=== PATIENT | male | born 1950 | race Caucasian/White ===

== ENCOUNTER 2021-02-05 11:49 | Emergency (ER) | payer MEDICARE ==
--- NOTE | 2021-02-05 11:59 | ERPHSYRPT ---
- History of Present Illness Time Seen by Provider: 02/05/21 11:58 Source: patient Exam Limitations: no limitations Physician History: This is a 71-year-old white male patient of the [facility] system who was diagnosed Covid positive viral infection on 01/31/2021 and presents with primary complaints of mild nausea, generalized abdominal pain that is mild and several episodes of diarrheal stools in the last couple of days. Patient is not on any new antibiotic treatment. Patient has received his Moderna vaccinations. This patient is diabetic and has a history of hypertension. Patient denies chest pain. He denies fever. He has no complaints of shortness of breath and arrives with room air oxygen saturation levels of greater than 95%. Patient lives [place]. Timing/Duration: day(s) (Last few days) Cough Quality/Degree: no cough Possible Cause: no prior episodes Modifying Factors: Improves With: nothing Associated Symptoms: No fever, No chills, No chest pain/soreness, No cough, No headache, No shortness of breath Allergies/Adverse Reactions: No Known Drug Allergies Allergy (Unverified 02/05/21 12:08) Travel Risk - International Travel Have you traveled outside of the country in past 3 weeks: No - Coronavirus Screening Are you exhibiting any of the following symptoms?: Yes Symptoms: Vomiting/Diarrhea - Vaccine Status Have you recieved a Covid-19 vaccination: Yes [employer]: Moderna - Review of Systems Constitutional: No Symptoms Eyes: No Symptoms Ears, Nose, & Throat: No Symptoms Respiratory: No Symptoms Abdominal/Gastrointestinal: Abdominal Pain, Nausea, Diarrhea, No Vomiting Genitourinary Symptoms: No No Symptoms Musculoskeletal: No Symptoms Skin: No Symptoms Neurological: No Symptoms Psychological: No Symptoms Endocrine: No Symptoms Hematologic/Lymphatic: No Symptoms Immunological/Allergic: No Symptoms All Other Systems: Reviewed and Negative - Past Medical History Pertinent Past Medical History: Yes - Past Surgical History Past Surgical History: Yes - Nursing Vital Signs Nursing Vital Signs: Initial Vital Signs Temperature 97.6 F 02/05/21 12:01 Pulse Rate 72 02/05/21 12:01 Respiratory Rate 18 02/05/21 12:01 Blood Pressure 142/70 02/05/21 12:01 O2 Sat by Pulse Oximetry 97 02/05/21 12:01 Pain Scale Pain Intensity 4 - Physical Exam General Appearance: no apparent distress, alert, anxiety Eye Exam: PERRL/EOMI, eyes nml inspection Ears, Nose, Throat Exam: normal ENT inspection, moist mucous membranes Neck Exam: normal inspection, non-tender, supple, full range of motion Respiratory Exam: normal breath sounds, lungs clear, airway intact, No chest tenderness, No respiratory distress Cardiovascular Exam: regular rate/rhythm, normal heart sounds, normal peripheral pulses Gastrointestinal/Abdomen Exam: soft, normal bowel sounds, No tenderness Rectal Exam: not done Back Exam: normal inspection, normal range of motion, No CVA tenderness, No vertebral tenderness Extremity Exam: normal inspection Neurologic Exam: alert, oriented x 3, cooperative, catcher plug II-XII nml as tested, normal mood/affect, nml cerebellar function, nml station & gait, sensation nml Skin Exam: normal color, warm, dry Lymphatic Exam: No adenopathy SpO2 Interpretation: normal O2 Delivery: Room Air - Course Nursing assessment & vital signs reviewed: Yes Ordered Tests: Active Orders 24 hr Category Date Time Status EKG-ER Only STAT Care 02/05/21 12:17 Active IV Insertion STAT Care 02/05/21 12:17 Active Isolation, Initiate & Maintain STAT Care 02/05/21 12:17 Active AMYLASE Stat Lab 02/05/21 12:30 Completed CBC W DIFF Stat Lab 02/05/21 12:30 Completed CMP Stat Lab 02/05/21 12:30 Completed Ferritin Stat Lab 02/05/21 12:30 Completed INFLUENZA A+B ABRAHAN Stat Lab 02/05/21 12:35 Completed LDH-LACTATE DEHYDROGENASE Stat Lab 02/05/21 12:30 Completed LIPASE Stat Lab 02/05/21 12:30 Completed Lactic Acid Stat Lab 02/05/21 12:17 Ordered [place] Screen Stat Lab 02/05/21 12:30 Completed TROPONIN Q3H Lab 02/05/21 12:30 Completed TROPONIN Q3H Lab 02/05/21 15:30 Ordered TROPONIN Q3H Lab 02/05/21 18:30 Ordered TROPONIN Q3H Lab 02/05/21 21:30 Ordered TROPONIN Q3H Lab 02/06/21 00:30 Ordered UA W/RFX UR CULTURE Stat Lab 02/05/21 14:15 Completed Medication Summary Discontinued Medications Generic Name Dose Route Start Last Admin Trade Name Freq PRN Reason Stop Dose Admin Sodium Chloride 1,000 mls @ 999 mls/hr 02/05/21 12:17 02/05/21 13:48 Sodium Chloride 0.9% 1000 Ml IV 02/05/21 13:17 Infused .Q1H1M STA Infusion Sodium Chloride 1,000 mls @ 999 mls/hr 02/05/21 13:32 02/05/21 14:53 Sodium Chloride 0.9% 1000 Ml IV 02/05/21 14:32 Infused .Q1H1M STA Infusion Sodium Chloride Confirm 02/05/21 13:41 Sodium Chloride 0.9% 1000 Ml Administered 02/05/21 13:42 Dose 1,000 mls @ ud .ROUTE .STK-MED ONE Ondansetron HCl 4 mg 02/05/21 12:17 02/05/21 12:26 Zofran 4 Mg/2 Ml Vial IV 02/05/21 12:18 4 mg STAT ONE Administration Ondansetron HCl Confirm 02/05/21 12:24 Zofran 4 Mg/2 Ml Vial Administered 02/05/21 12:25 Dose 4 mg .ROUTE .STK-MED ONE Lab/Rad Data: Laboratory Result Diagrams 02/05/21 12:30 02/05/21 12:30 Laboratory Results 02/05/21 02/05/21 02/05/21 Range/Units 14:15 12:35 12:30 WBC (4.0-10.5) K/mm3 RBC (4.1-5.6) M/mm3 Hgb (12.5-18.0) gm/dl Hct (42-50) % MCV (78-100) fl MCH (26-32) pg MCHC (32-36) g/dl RDW (11.5-14.0) % Plt Count (150-450) K/mm3 MPV (7.5-11.0) fl Gran % (36.0-66.0) % Eos # (Auto) (0-0.5) Absolute Lymphs (auto) (1.0-4.6) Absolute Monos (auto) (0.0-1.3) Lymphocytes % (24.0-44.0) % Monocytes % (0.0-12.0) % Eosinophils % (0.00-5.0) % Basophils % (0.0-0.4) % Absolute Granulocytes (1.4-6.9) Basophils # (0-0.4) Sodium (137-145) mmol/L Potassium (3.5-5.1) mmol/L Chloride (98-107) mmol/L Carbon Dioxide (22-30) mmol/L Anion Gap (5-15) MEQ/L BUN (9-20) mg/dL Creatinine (0.66-1.25) mg/dL Estimated GFR ML/MIN Glucose (74-106) mg/dL Calcium (8.4-10.2) mg/dL Ferritin (17.9-464) ng/mL Total Bilirubin (0.2-1.3) mg/dL AST (17-59) U/L ALT (0-50) U/L Alkaline Phosphatase (38-126) U/L Lactate Dehydrogenase (120-246) U/L Troponin I (0.000-0.034) ng/mL Serum Total Protein (6.3-8.2) g/dL Albumin (3.5-5.0) g/dL Amylase (30-110) U/L Lipase (23-300) U/L Urine Color YELLOW (YELLOW) Urine Appearance CLEAR (CLEAR) Urine pH 6.0 (5-6) Ur Specific [place] 1.013 (1.005-1.025) Urine Protein NEGATIVE (Negative) Urine Ketones NEGATIVE (NEGATIVE) Urine Blood NEGATIVE (0-5) Shayne/ul Urine Nitrite NEGATIVE (NEGATIVE) Urine Bilirubin NEGATIVE (NEGATIVE) Urine Urobilinogen 2 (0-1) mg/dL Ur Leukocyte Esterase NEGATIVE (NEGATIVE) Urine WBC (Auto) NONE (0-5) /HPF Urine RBC (Auto) NONE (0-2) /HPF U Epithel Cells (Auto) NONE (FEW) /HPF Urine Bacteria (Auto) NONE (NEGATIVE) /HPF Urine Culture Reflexed NO (NO) Urine Glucose NEGATIVE (NEGATIVE) mg/dL Monoscreen NEGATIVE (Negative) Influenza Type A Ag NEGATIVE (NEGATIVE) Influenza Type B Ag NEGATIVE (NEGATIVE) Slides for Path Review 02/05/21 02/05/21 02/05/21 Range/Units 12:30 12:30 12:30 WBC (4.0-10.5) K/mm3 RBC (4.1-5.6) M/mm3 Hgb (12.5-18.0) gm/dl Hct (42-50) % MCV (78-100) fl MCH (26-32) pg MCHC (32-36) g/dl RDW (11.5-14.0) % Plt Count (150-450) K/mm3 MPV (7.5-11.0) fl Gran % (36.0-66.0) % Eos # (Auto) (0-0.5) Absolute Lymphs (auto) (1.0-4.6) Absolute Monos (auto) (0.0-1.3) Lymphocytes % (24.0-44.0) % Monocytes % (0.0-12.0) % Eosinophils % (0.00-5.0) % Basophils % (0.0-0.4) % Absolute Granulocytes (1.4-6.9) Basophils # (0-0.4) Sodium 131 L (137-145) mmol/L Potassium 3.5 (3.5-5.1) mmol/L Chloride 95 L (98-107) mmol/L Carbon Dioxide 22 (22-30) mmol/L Anion Gap 17.8 H (5-15) MEQ/L BUN 22 H (9-20) mg/dL Creatinine 1.04 (0.66-1.25) mg/dL Estimated GFR > 60.0 ML/MIN Glucose 75 (74-106) mg/dL Calcium 9.4 (8.4-10.2) mg/dL Ferritin 146 (17.9-464) ng/mL Total Bilirubin 1.50 H (0.2-1.3) mg/dL AST 208 H (17-59) U/L ALT 78 H (0-50) U/L Alkaline Phosphatase 143 H (38-126) U/L Lactate Dehydrogenase 240 (120-246) U/L Troponin I < 0.012 (0.000-0.034) ng/mL Serum Total Protein 7.6 (6.3-8.2) g/dL Albumin 3.6 (3.5-5.0) g/dL Amylase 79 (30-110) U/L Lipase 381 H (23-300) U/L Urine Color (YELLOW) Urine Appearance (CLEAR) Urine pH (5-6) Ur Specific [place] (1.005-1.025) Urine Protein (Negative) Urine Ketones (NEGATIVE) Urine Blood (0-5) Shayne/ul Urine Nitrite (NEGATIVE) Urine Bilirubin (NEGATIVE) Urine Urobilinogen (0-1) mg/dL Ur Leukocyte Esterase (NEGATIVE) Urine WBC (Auto) (0-5) /HPF Urine RBC (Auto) (0-2) /HPF U Epithel Cells (Auto) (FEW) /HPF Urine Bacteria (Auto) (NEGATIVE) /HPF Urine Culture Reflexed (NO) Urine Glucose (NEGATIVE) mg/dL Monoscreen (Negative) Influenza Type A Ag (NEGATIVE) Influenza Type B Ag (NEGATIVE) Slides for Path Review 02/05/21 Range/Units 12:30 WBC 4.4 (4.0-10.5) K/mm3 RBC 3.65 L (4.1-5.6) M/mm3 Hgb 11.7 L (12.5-18.0) gm/dl Hct 34.9 L (42-50) % MCV 95.6 (78-100) fl MCH 32.1 H (26-32) pg MCHC 33.5 (32-36) g/dl RDW 15.5 H (11.5-14.0) % Plt Count 94 L (150-450) K/mm3 MPV 10.9 (7.5-11.0) fl Gran % 67.1 H (36.0-66.0) % Eos # (Auto) 0.02 (0-0.5) Absolute Lymphs (auto) 0.81 L (1.0-4.6) Absolute Monos (auto) 0.58 (0.0-1.3) Lymphocytes % 18.6 L (24.0-44.0) % Monocytes % 13.3 H (0.0-12.0) % Eosinophils % 0.5 (0.00-5.0) % Basophils % 0.5 (0.0-0.4) % Absolute Granulocytes 2.93 (1.4-6.9) Basophils # 0.02 (0-0.4) Sodium (137-145) mmol/L Potassium (3.5-5.1) mmol/L Chloride (98-107) mmol/L Carbon Dioxide (22-30) mmol/L Anion Gap (5-15) MEQ/L BUN (9-20) mg/dL Creatinine (0.66-1.25) mg/dL Estimated GFR ML/MIN Glucose (74-106) mg/dL Calcium (8.4-10.2) mg/dL Ferritin (17.9-464) ng/mL Total Bilirubin (0.2-1.3) mg/dL AST (17-59) U/L ALT (0-50) U/L Alkaline Phosphatase (38-126) U/L Lactate Dehydrogenase (120-246) U/L Troponin I (0.000-0.034) ng/mL Serum Total Protein (6.3-8.2) g/dL Albumin (3.5-5.0) g/dL Amylase (30-110) U/L Lipase (23-300) U/L Urine Color (YELLOW) Urine Appearance (CLEAR) Urine pH (5-6) Ur Specific [place] (1.005-1.025) Urine Protein (Negative) Urine Ketones (NEGATIVE) Urine Blood (0-5) Shayne/ul Urine Nitrite (NEGATIVE) Urine Bilirubin (NEGATIVE) Urine Urobilinogen (0-1) mg/dL Ur Leukocyte Esterase (NEGATIVE) Urine WBC (Auto) (0-5) /HPF Urine RBC (Auto) (0-2) /HPF U Epithel Cells (Auto) (FEW) /HPF Urine Bacteria (Auto) (NEGATIVE) /HPF Urine Culture Reflexed (NO) Urine Glucose (NEGATIVE) mg/dL Monoscreen (Negative) Influenza Type A Ag (NEGATIVE) Influenza Type B Ag (NEGATIVE) Slides for Path Review YES - Progress Progress: improved Air Movement: good Progress Note: 02/05/21 15:24 Medical decision making: This patient has known COVID-19 viral infection. He has no chest pain. He is not short of breath. He is oxygenating well on room air. After IV hydration he states his symptoms have improved. Patient will be discharged to home with instructions to continue clear liquid diet and advance slowly. He is to avoid fatty greasy spicy foods. We will send a prescription for Zofran to his pharmacy. Blood Culture(s) Obtained: Yes Antibiotics given: No Counseled pt/family regarding: lab results, diagnosis, need for follow-up - Departure Departure Disposition: Home Clinical Impression: Viral illness, COVID-19 virus infection Condition: Stable Critical Care Time: No Additional Instructions: Drink plenty of clear liquids. Take your medication as prescribed. Return to the emergency department if symptoms worsen. Continue quarantine yourself until the timeframe has passed for quarantine. Avoid fatty greasy spicy foods. Prescriptions: Ondansetron ODT 4 MG [Zofran Odt 4 mg] 4 mg PO Q6H PRN PRN #10 tablet PRN Reason: Vomiting
[2021-02-05] MEDS ORDERED: Zofran 4 MG/2 ML VIAL IV ONE (12:17)
[2021-02-05] MEDS ORDERED: Sodium Chloride 0.9% 1000 ML 1,000 ML IV STA ×2 (12:17→13:32)
[2021-02-05] MEDS ORDERED: Zofran 4 MG/2 ML VIAL ONE (12:24)
[2021-02-05 12:40] LABS: Absolute Neutrophil Ct (ANC) 2.93 (1.4-6.9); BASOPHIL % 0.5 % (0.0-0.4); Basophil (Absolute #) 0.02 (0-0.4); Eosinophil % 0.5 % (0.00-5.0); Eosinophil (Absolute #) 0.02 (0-0.5); Hematocrit 34.9 % (42-50); Hemoglobin 11.7 gm/dl (12.5-18.0); Lymphocyte (Absolute #) 0.81 (1.0-4.6); Lymphocytes % 18.6 % (24.0-44.0); Mean Cell Volume 95.6 fl (78-100); Mean Corpuscular Hemoglobin 32.1 pg (26-32); Mean Corpuscular Hgb Concent. 33.5 g/dl (32-36); Mean Platelet Volume 10.9 fl (7.5-11.0); Monocyte (Absolute #) 0.58 (0.0-1.3); Monocytes % 13.3 % (0.0-12.0); Neutrophil % 67.1 % (36.0-66.0); Platelet Count 94 K/mm3 (150-450); Red Blood Count 3.65 M/mm3 (4.1-5.6); Red Cell Distribution Width 15.5 % (11.5-14.0); White Blood Count 4.4 K/mm3 (4.0-10.5)
[2021-02-05 13:02] LABS: INFLUENZA A NEGATIVE (NEGATIVE); INFLUENZA B NEGATIVE (NEGATIVE)
[2021-02-05 13:06] LABS: ALBUMIN 3.6 g/dL (3.5-5.0); ALKALINE PHOSPHATASE 143 U/L (38-126); AMYLASE 79 U/L (30-110); ANION GAP 17.8 MEQ/L (5-15); BLOOD UREA NITROGEN 22 mg/dL (9-20); CHLORIDE 95 mmol/L (98-107); Calcium 9.4 mg/dL (8.4-10.2); Carbon Dioxide 22 mmol/L (22-30); Creatinine 1 1.04 mg/dL (0.66-1.25); EST GLOMERULAR FILTRATION RATE > 60.0 ML/MIN; Glucose 75 mg/dL (74-106); LDH-LACTATE DEHYDROGENASE 240 U/L (120-246); LIPASE 381 U/L (23-300); Potassium 3.5 mmol/L (3.5-5.1); SGOT/AST 208 U/L (17-59); SGPT/ALT 78 U/L (0-50); SODIUM 131 mmol/L (137-145); Total Protein 7.6 g/dL (6.3-8.2)
[2021-02-05] MEDS ORDERED: Sodium Chloride 0.9% 1000 ML 1,000 ML ONE (13:41)
[2021-02-05 14:29] LABS: Slide Review 1 YES
[2021-02-05 14:59] LABS: Appearance CLEAR (CLEAR); Bilirubin NEGATIVE (NEGATIVE); Blood NEGATIVE Ery/ul (0-5); Glucose NEGATIVE (NEGATIVE); Ketones NEGATIVE (NEGATIVE); Leukocyte Esterase NEGATIVE (NEGATIVE); Nitrite NEGATIVE (NEGATIVE); Protein,Urine Dip NEGATIVE (Negative); Specific Gravity 1.013 (1.005-1.025); Urobilinogen 2 mg/dL (0-1)
[2021-02-05 15:19] VITALS: BP 126/72; PULSE 62; O2SAT 96
== END 2021-02-05 15:54 | disposition home or self-care (01) ==
LOC: ED 11:49
DX: U07.1 COVID-19 (principal); R10.9 Unspecified abdominal pain; R11.0 Nausea; R19.7 Diarrhea, unspecified; E11.9 Type 2 diabetes mellitus without complications; I10 Essential (primary) hypertension; Z20.822 Contact with and (suspected) exposure to COVID-19
CPT/HCPCS: 36000; 36415; 80053; 81001; 82150; 82728; 83615; 83690; 84484; 85025; 86308; 87400; 93005; 96360; 96374; 99284; J2405

== ENCOUNTER 2021-06-25 09:28 | Emergency (ER) | payer MEDICARE, OTHER ==
[2021-06-25] MEDS ORDERED: DUONEB 0.5-3 MG/3 ml Neb IH ONE ×2 (09:59→10:12)
--- NOTE | 2021-06-25 10:05 | ERPHSYRPT ---
- History of Present Illness Time Seen by Provider: 06/25/21 09:37 Source: patient Exam Limitations: no limitations Physician History: 71-year-old male with remote history of tobacco abuse, hypertension, hyperlipidemia, diabetes mellitus presented in the ER with 2 days of progressively increasing shortness of breath and cough minimal productive of clear sputum with associated increased abdominal distention and lower extremity swellings. Patient denies any history of CAD or CHF. Denies any chest pain but complains of difficulty breathing especially with lying down. Subjective feeling of fever chills since yesterday and is vaccinated for COVID-19. Timing/Duration: day(s) (2), constant, gradual onset, worse Activities at Onset: activity, rest Severity of Dyspnea-Max: moderate Severity of Dyspnea-Current: moderate Possible Cause: no prior episodes Associated Symptoms: anxiety, cough, edema, fever, loss of appetite, chills, heaviness, leg swelling, tightness, No painful breathing Allergies/Adverse Reactions: No Known Drug Allergies Allergy (Verified 06/25/21 10:12) Home Medications: Unobtainable 06/25/21 [History] Hx Influenza Vaccination/Date Given: No Hx Pneumococcal Vaccination/Date Given: No Travel Risk - Vaccine Status Have you recieved a Covid-19 vaccination: Yes Tobacco Sweeper: Moderna - Vaccination Dates Date of 2cond Vaccination (if applicable): ? - Review of Systems Constitutional: Fever, Chills, Fatigue, Weakness Eyes: No Symptoms Ears, Nose, & Throat: No Symptoms Respiratory: Cough, Dyspnea Cardiac: Edema Abdominal/Gastrointestinal: Abdominal Pain, No Nausea, No Vomiting Genitourinary Symptoms: No Symptoms Musculoskeletal: No Symptoms Skin: No Symptoms Neurological: No Symptoms Endocrine: No Symptoms Hematologic/Lymphatic: No Symptoms Immunological/Allergic: No Symptoms - Past Medical History Pertinent Past Medical History: Yes Cardiac History: Hypertension Endocrine Medical History: Diabetes Type II - Past Surgical History Past Surgical History: Yes - Social History Smoking Status: Never smoker Exposure to second hand smoke: No Drug Use: none Patient Lives Alone: Yes (states has help is needed) - Nursing Vital Signs Nursing Vital Signs: Initial Vital Signs Temperature 97.2 F 06/25/21 09:53 Pulse Rate 105 H 06/25/21 09:53 Respiratory Rate 20 06/25/21 09:53 Blood Pressure 125/86 06/25/21 09:53 O2 Sat by Pulse Oximetry 99 06/25/21 09:53 Pain Scale Pain Intensity 4 - Physical Exam General Appearance: no apparent distress, alert Eye Exam: PERRL/EOMI, eyes nml inspection Ears, Nose, Throat Exam: hearing grossly normal, normal ENT inspection, normal pharynx Neck Exam: normal inspection, non-tender, supple, full range of motion Respiratory Exam: normal breath sounds, lungs clear Cardiovascular/Chest Exam: normal heart sounds, regular rate/rhythm Abdominal/Gastrointestinal Exam: normal bowel sounds, distention, No tenderness, No guarding Extremity Exam: non-tender, normal range of motion, normal inspection, pedal edema, swelling, No jamin's sign, No joint swelling Neurologic Exam: alert, oriented x 3, cooperative, certified personal finance counselor II-XII nml as tested Skin Exam: normal color SpO2 Interpretation: normal SpO2: 99 O2 Delivery: Room Air - Course EKG Interpreted by Me: RATE ([id number]), Sinus Tach, NORMAL AXIS, NORMAL INTERVALS, Non-specific ST Changes Ordered Tests: Active Orders 24 hr Category Date Time Status Logging Worker STAT Care 06/25/21 09:59 Active EKG-ER Only STAT Care 06/25/21 09:59 Active IV Insertion STAT Care 06/25/21 09:59 Active ABDOMEN AND PELVIS W/0 CONTRAS [CT] Stat Exams 06/25/21 11:03 Completed CHEST 1 VIEW (PORTABLE) Stat Exams 06/25/21 09:59 Completed BLOOD CULTURE Stat Lab 06/25/21 10:15 Received CBC W DIFF Stat Lab 06/25/21 10:00 Completed CMP Stat Lab 06/25/21 10:00 Completed COVID AG-BINAX NOW RAPID TEST Stat Lab 06/25/21 14:36 Completed Hemoglobin Stat Lab 06/25/21 14:36 Completed LIPASE Stat Lab 06/25/21 10:00 Completed Lactic Acid Stat Lab 06/25/21 10:18 Completed Lactic Acid Stat Lab 06/25/21 12:23 Completed Lactic Acid Stat Lab 06/25/21 14:42 Completed MAGNESIUM Stat Lab 06/25/21 10:00 Completed NT PRO BNP Stat Lab 06/25/21 10:00 Completed PROTIME WITH INR Stat Lab 06/25/21 10:00 Completed PTT Stat Lab 06/25/21 10:00 Completed TROPONIN Q3H Lab 06/25/21 10:00 Completed TROPONIN Q3H Lab 06/25/21 12:35 Completed TROPONIN Q3H Lab 06/25/21 16:00 Ordered TROPONIN Q3H Lab 06/25/21 19:00 Ordered TROPONIN Q3H Lab 06/25/21 22:00 Ordered UA W/RFX UR CULTURE Stat Lab 06/25/21 14:15 Completed Respiratory Therapy Assessment DAILY RT 06/25/21 10:15 Active Medication Summary Generic Name Dose Route Start Last Admin Trade Name Freq PRN Reason Stop Dose Admin Sodium Chloride 1,000 mls @ 125 mls/hr 06/25/21 11:00 06/25/21 12:03 Sodium Chloride 0.9% 1000 Ml IV 07/25/21 10:59 125 mls/hr .Q8H SIXTO Administration Pantoprazole Sodium 80 mg/ 500 mls @ 50 mls/hr 06/25/21 11:15 Sodium Chloride IV 07/25/21 11:14 .Q10H SIXTO Magnesium Sulfate/Dextrose 100 mls @ 100 mls/hr 06/25/21 11:15 06/25/21 12:04 Magnesium 1 Gm / 100 Ml D5w IV 06/25/21 13:14 100 mls/hr Q1H SIXTO Administration Discontinued Medications Generic Name Dose Route Start Last Admin Trade Name Freq PRN Reason Stop Dose Admin Albuterol/Ipratropium 3 ml 06/25/21 09:59 06/25/21 10:24 Ipratropium/Albuterol Sulfate 3 Ml Ampul.Neb IH 06/25/21 10:00 3 ml STAT ONE Administration Albuterol/Ipratropium Confirm 06/25/21 10:12 Ipratropium/Albuterol Sulfate 3 Ml Ampul.Neb Administered 06/25/21 10:13 Dose 3 ml IH .STK-MED ONE Piperacillin Sod/Tazobactam 100 mls @ 200 mls/hr 06/25/21 11:05 06/25/21 11:59 Sod 3.375 gm/ Sodium Chloride IV 06/25/21 11:34 200 mls/hr STAT ONE Administration Sodium Chloride Confirm 06/25/21 11:53 Sodium Chloride 100ml Mini-Bag Plus Administered 06/25/21 11:54 Dose 100 mls @ ud IV .STK-MED ONE Pantoprazole Sodium 40 mg 06/25/21 10:51 06/25/21 11:56 Pantoprazole 40 Mg Vial IV 06/25/21 10:52 40 mg STAT ONE Administration Pantoprazole Sodium Confirm 06/25/21 11:50 Pantoprazole 40 Mg Vial Administered 06/25/21 11:51 Dose 40 mg IV .STK-MED ONE Pantoprazole Sodium Confirm 06/25/21 12:01 Pantoprazole 40 Mg Vial Administered 06/25/21 12:02 Dose 40 mg IV .STK-MED ONE Piperacillin Sod/Tazobactam Sod Confirm 06/25/21 11:50 Piperacillin/Tazobactam Sodium 3.375 Gm Vial Administered 06/25/21 11:51 Dose 3.375 gm IV .STK-MED ONE Lab/Rad Data: Laboratory Result Diagrams 06/25/21 14:36 06/25/21 10:00 Laboratory Results 06/25/21 06/25/21 06/25/21 Range/Units 14:42 14:36 14:36 WBC (4.0-10.5) K/mm3 RBC (4.1-5.6) M/mm3 Hgb 6.5 L* (12.5-18.0) gm/dl Hct (42-50) % MCV (78-100) fl MCH (26-32) pg MCHC (32-36) g/dl RDW (11.5-14.0) % Plt Count (150-450) K/mm3 MPV (7.5-11.0) fl Gran % (36.0-66.0) % Eos # (Auto) (0-0.5) Absolute Lymphs (auto) (1.0-4.6) Absolute Monos (auto) (0.0-1.3) Lymphocytes % (24.0-44.0) % Monocytes % (0.0-12.0) % Eosinophils % (0.00-5.0) % Basophils % (0.0-0.4) % Absolute Granulocytes (1.4-6.9) Basophils # (0-0.4) PT (9.4-12.5) SECONDS INR (0.8-3.0) APTT (25.1-36.5) SECONDS Sodium (137-145) mmol/L Potassium (3.5-5.1) mmol/L Chloride (98-107) mmol/L Carbon Dioxide (22-30) mmol/L Anion Gap (5-15) MEQ/L BUN (9-20) mg/dL Creatinine (0.66-1.25) mg/dL Estimated GFR ML/MIN Glucose (74-106) mg/dL Lactic Acid 7.2 H (0.4-2.0) Calcium (8.4-10.2) mg/dL Magnesium (1.6-2.3) mg/dL Total Bilirubin (0.2-1.3) mg/dL AST (17-59) U/L ALT (0-50) U/L Alkaline Phosphatase (38-126) U/L Troponin I (0.000-0.034) ng/mL NT-Pro-B Natriuret Pep (0-900) pg/mL Serum Total Protein (6.3-8.2) g/dL Albumin (3.5-5.0) g/dL Lipase (23-300) U/L Urine Color (YELLOW) Urine Appearance (CLEAR) Urine pH (5-6) Ur Specific [place] (1.005-1.025) Urine Protein (Negative) Urine Ketones (NEGATIVE) Urine Blood (0-5) Shayne/ul Urine Nitrite (NEGATIVE) Urine Bilirubin (NEGATIVE) Urine Urobilinogen (0-1) mg/dL Ur Leukocyte Esterase (NEGATIVE) Urine WBC (Auto) (0-5) /HPF U Hyaline Cast (Auto) (0-2) /LPF U Epithel Cells (Auto) (FEW) /HPF Urine Mucus (Auto) (NEGATIVE) /HPF Urine Culture Reflexed (NO) Urine Glucose (NEGATIVE) mg/dL SARS-CoV-2 Ag (Rapid) NEGATIVE (NEGATIVE) ABO Group Rh Factor Antibody Screen (NEGATIVE) Crossmatch (COMPATIBLE) 06/25/21 06/25/21 06/25/21 Range/Units 14:15 12:35 12:23 WBC (4.0-10.5) K/mm3 RBC (4.1-5.6) M/mm3 Hgb (12.5-18.0) gm/dl Hct (42-50) % MCV (78-100) fl MCH (26-32) pg MCHC (32-36) g/dl RDW (11.5-14.0) % Plt Count (150-450) K/mm3 MPV (7.5-11.0) fl Gran % (36.0-66.0) % Eos # (Auto) (0-0.5) Absolute Lymphs (auto) (1.0-4.6) Absolute Monos (auto) (0.0-1.3) Lymphocytes % (24.0-44.0) % Monocytes % (0.0-12.0) % Eosinophils % (0.00-5.0) % Basophils % (0.0-0.4) % Absolute Granulocytes (1.4-6.9) Basophils # (0-0.4) PT (9.4-12.5) SECONDS INR (0.8-3.0) APTT (25.1-36.5) SECONDS Sodium (137-145) mmol/L Potassium (3.5-5.1) mmol/L Chloride (98-107) mmol/L Carbon Dioxide (22-30) mmol/L Anion Gap (5-15) MEQ/L BUN (9-20) mg/dL Creatinine (0.66-1.25) mg/dL Estimated GFR ML/MIN Glucose (74-106) mg/dL Lactic Acid 8.0 H (0.4-2.0) Calcium (8.4-10.2) mg/dL Magnesium (1.6-2.3) mg/dL Total Bilirubin (0.2-1.3) mg/dL AST (17-59) U/L ALT (0-50) U/L Alkaline Phosphatase (38-126) U/L Troponin I < 0.012 (0.000-0.034) ng/mL NT-Pro-B Natriuret Pep (0-900) pg/mL Serum Total Protein (6.3-8.2) g/dL Albumin (3.5-5.0) g/dL Lipase (23-300) U/L Urine Color YELLOW (YELLOW) Urine Appearance CLEAR (CLEAR) Urine pH 5.0 (5-6) Ur Specific [place] 1.016 (1.005-1.025) Urine Protein NEGATIVE (Negative) Urine Ketones NEGATIVE (NEGATIVE) Urine Blood NEGATIVE (0-5) Shayne/ul Urine Nitrite NEGATIVE (NEGATIVE) Urine Bilirubin NEGATIVE (NEGATIVE) Urine Urobilinogen NEGATIVE (0-1) mg/dL Ur Leukocyte Esterase NEGATIVE (NEGATIVE) Urine WBC (Auto) 0-2 (0-5) /HPF U Hyaline Cast (Auto) 3-5 (0-2) /LPF U Epithel Cells (Auto) NONE (FEW) /HPF Urine Mucus (Auto) SLIGHT (NEGATIVE) /HPF Urine Culture Reflexed NO (NO) Urine Glucose NEGATIVE (NEGATIVE) mg/dL SARS-CoV-2 Ag (Rapid) (NEGATIVE) ABO Group Rh Factor Antibody Screen (NEGATIVE) Crossmatch (COMPATIBLE) 06/25/21 06/25/21 06/25/21 Range/Units 11:08 11:08 11:08 WBC (4.0-10.5) K/mm3 RBC (4.1-5.6) M/mm3 Hgb (12.5-18.0) gm/dl Hct (42-50) % MCV (78-100) fl MCH (26-32) pg MCHC (32-36) g/dl RDW (11.5-14.0) % Plt Count (150-450) K/mm3 MPV (7.5-11.0) fl Gran % (36.0-66.0) % Eos # (Auto) (0-0.5) Absolute Lymphs (auto) (1.0-4.6) Absolute Monos (auto) (0.0-1.3) Lymphocytes % (24.0-44.0) % Monocytes % (0.0-12.0) % Eosinophils % (0.00-5.0) % Basophils % (0.0-0.4) % Absolute Granulocytes (1.4-6.9) Basophils # (0-0.4) PT (9.4-12.5) SECONDS INR (0.8-3.0) APTT (25.1-36.5) SECONDS Sodium (137-145) mmol/L Potassium (3.5-5.1) mmol/L Chloride (98-107) mmol/L Carbon Dioxide (22-30) mmol/L Anion Gap (5-15) MEQ/L BUN (9-20) mg/dL Creatinine (0.66-1.25) mg/dL Estimated GFR ML/MIN Glucose (74-106) mg/dL Lactic Acid (0.4-2.0) Calcium (8.4-10.2) mg/dL Magnesium (1.6-2.3) mg/dL Total Bilirubin (0.2-1.3) mg/dL AST (17-59) U/L ALT (0-50) U/L Alkaline Phosphatase (38-126) U/L Troponin I (0.000-0.034) ng/mL NT-Pro-B Natriuret Pep (0-900) pg/mL Serum Total Protein (6.3-8.2) g/dL Albumin (3.5-5.0) g/dL Lipase (23-300) U/L Urine Color (YELLOW) Urine Appearance (CLEAR) Urine pH (5-6) Ur Specific [place] (1.005-1.025) Urine Protein (Negative) Urine Ketones (NEGATIVE) Urine Blood (0-5) Shayne/ul Urine Nitrite (NEGATIVE) Urine Bilirubin (NEGATIVE) Urine Urobilinogen (0-1) mg/dL Ur Leukocyte Esterase (NEGATIVE) Urine WBC (Auto) (0-5) /HPF U Hyaline Cast (Auto) (0-2) /LPF U Epithel Cells (Auto) (FEW) /HPF Urine Mucus (Auto) (NEGATIVE) /HPF Urine Culture Reflexed (NO) Urine Glucose (NEGATIVE) mg/dL SARS-CoV-2 Ag (Rapid) (NEGATIVE) ABO Group A Rh Factor POSITIVE Antibody Screen NEGATIVE (NEGATIVE) Crossmatch COMPATIBLE COMPATIBLE (COMPATIBLE) 06/25/21 06/25/21 06/25/21 Range/Units 10:18 10:00 10:00 WBC (4.0-10.5) K/mm3 RBC (4.1-5.6) M/mm3 Hgb (12.5-18.0) gm/dl Hct (42-50) % MCV (78-100) fl MCH (26-32) pg MCHC (32-36) g/dl RDW (11.5-14.0) % Plt Count (150-450) K/mm3 MPV (7.5-11.0) fl Gran % (36.0-66.0) % Eos # (Auto) (0-0.5) Absolute Lymphs (auto) (1.0-4.6) Absolute Monos (auto) (0.0-1.3) Lymphocytes % (24.0-44.0) % Monocytes % (0.0-12.0) % Eosinophils % (0.00-5.0) % Basophils % (0.0-0.4) % Absolute Granulocytes (1.4-6.9) Basophils # (0-0.4) PT 17.2 H (9.4-12.5) SECONDS INR 1.46 (0.8-3.0) APTT 34.3 (25.1-36.5) SECONDS Sodium (137-145) mmol/L Potassium (3.5-5.1) mmol/L Chloride (98-107) mmol/L Carbon Dioxide (22-30) mmol/L Anion Gap (5-15) MEQ/L BUN (9-20) mg/dL Creatinine (0.66-1.25) mg/dL Estimated GFR ML/MIN Glucose (74-106) mg/dL Lactic Acid 8.5 H (0.4-2.0) Calcium (8.4-10.2) mg/dL Magnesium (1.6-2.3) mg/dL Total Bilirubin (0.2-1.3) mg/dL AST (17-59) U/L ALT (0-50) U/L Alkaline Phosphatase (38-126) U/L Troponin I < 0.012 (0.000-0.034) ng/mL NT-Pro-B Natriuret Pep (0-900) pg/mL Serum Total Protein (6.3-8.2) g/dL Albumin (3.5-5.0) g/dL Lipase (23-300) U/L Urine Color (YELLOW) Urine Appearance (CLEAR) Urine pH (5-6) Ur Specific [place] (1.005-1.025) Urine Protein (Negative) Urine Ketones (NEGATIVE) Urine Blood (0-5) Shayne/ul Urine Nitrite (NEGATIVE) Urine Bilirubin (NEGATIVE) Urine Urobilinogen (0-1) mg/dL Ur Leukocyte Esterase (NEGATIVE) Urine WBC (Auto) (0-5) /HPF U Hyaline Cast (Auto) (0-2) /LPF U Epithel Cells (Auto) (FEW) /HPF Urine Mucus (Auto) (NEGATIVE) /HPF Urine Culture Reflexed (NO) Urine Glucose (NEGATIVE) mg/dL SARS-CoV-2 Ag (Rapid) (NEGATIVE) ABO Group Rh Factor Antibody Screen (NEGATIVE) Crossmatch (COMPATIBLE) 06/25/21 06/25/21 Range/Units 10:00 10:00 WBC 8.5 (4.0-10.5) K/mm3 RBC 2.36 L (4.1-5.6) M/mm3 Hgb 7.5 L (12.5-18.0) gm/dl Hct 23.8 L (42-50) % MCV 100.8 H (78-100) fl MCH 31.8 (26-32) pg MCHC 31.5 L (32-36) g/dl RDW 17.4 H (11.5-14.0) % Plt Count 189 (150-450) K/mm3 MPV 10.3 (7.5-11.0) fl Gran % 75.3 H (36.0-66.0) % Eos # (Auto) 0.04 (0-0.5) Absolute Lymphs (auto) 1.32 (1.0-4.6) Absolute Monos (auto) 0.72 (0.0-1.3) Lymphocytes % 15.6 L (24.0-44.0) % Monocytes % 8.5 (0.0-12.0) % Eosinophils % 0.5 (0.00-5.0) % Basophils % 0.1 (0.0-0.4) % Absolute Granulocytes 6.37 (1.4-6.9) Basophils # 0.01 (0-0.4) PT (9.4-12.5) SECONDS INR (0.8-3.0) APTT (25.1-36.5) SECONDS Sodium 134 L (137-145) mmol/L Potassium 5.1 (3.5-5.1) mmol/L Chloride 102 (98-107) mmol/L Carbon Dioxide 14 L* (22-30) mmol/L Anion Gap 22.5 H (5-15) MEQ/L BUN 34 H (9-20) mg/dL Creatinine 1.75 H (0.66-1.25) mg/dL Estimated GFR 41.2 ML/MIN Glucose 78 (74-106) mg/dL Lactic Acid (0.4-2.0) Calcium 8.7 (8.4-10.2) mg/dL Magnesium 1.5 L (1.6-2.3) mg/dL Total Bilirubin 1.30 (0.2-1.3) mg/dL AST 69 H (17-59) U/L ALT 49 (0-50) U/L Alkaline Phosphatase 148 H (38-126) U/L Troponin I (0.000-0.034) ng/mL NT-Pro-B Natriuret Pep 186 (0-900) pg/mL Serum Total Protein 8.0 (6.3-8.2) g/dL Albumin 3.2 L (3.5-5.0) g/dL Lipase 398 H (23-300) U/L Urine Color (YELLOW) Urine Appearance (CLEAR) Urine pH (5-6) Ur Specific [place] (1.005-1.025) Urine Protein (Negative) Urine Ketones (NEGATIVE) Urine Blood (0-5) Shayne/ul Urine Nitrite (NEGATIVE) Urine Bilirubin (NEGATIVE) Urine Urobilinogen (0-1) mg/dL Ur Leukocyte Esterase (NEGATIVE) Urine WBC (Auto) (0-5) /HPF U Hyaline Cast (Auto) (0-2) /LPF U Epithel Cells (Auto) (FEW) /HPF Urine Mucus (Auto) (NEGATIVE) /HPF Urine Culture Reflexed (NO) Urine Glucose (NEGATIVE) mg/dL SARS-CoV-2 Ag (Rapid) (NEGATIVE) ABO Group Rh Factor Antibody Screen (NEGATIVE) Crossmatch (COMPATIBLE) - Progress Progress: improved Air Movement: fair Progress Note: 06/25/21 13:19 71 years old is evaluated for shortness of breath with abdominal distention. Given breathing treatment, on reevaluation shortness of breath is better. Work-up showed drop in hemoglobin from 11.5-7.5 and patient did admit having dark stool for almost 1 week, started on Protonix bolus followed by drip. Type and screen done. Also has PHILIPPE with baseline creatinine of 1 and today 1.75 with a lactate of 8.5. Given a dose of antibiotics Zosyn and gentle hydration, will not given fluid bolus per sepsis protocol because of him already fluid overloaded with ascites. CT did confirm large sciatic fluid and some esophagitis. This is probably the reason for his drop in hemoglobin. Patient needs to be transferred to facility with GI services. I have called [facility] and no beds are available. [facility] and [facility] who recommended rechecking hemoglobin and lactate and call them back in 2 hours. 06/25/21 15:22 Repeat hemoglobin is dropped to 6.5 which showed some continuing loss with some element of dilution because of fluids. Discussed with patient in detail about risk and benefits of transfusion and he wants to proceed with transfusion. [facility] and are waiting for physician callback. 06/25/21 15:[address] Hull at [place], reviewed history, work-up and current management, agreed with transfer. Blood Culture(s) Obtained: Yes Antibiotics given: Yes Counseled pt/family regarding: lab results, diagnosis, rad results - Departure Departure Disposition: Transfer Clinical Impression: Acute renal failure, Hypomagnesemia, Symptomatic anemia Cirrhosis of liver with ascites Qualifiers: Hepatic cirrhosis type: unspecified hepatic cirrhosis Qualified Code(s): K74.60 - Unspecified cirrhosis of liver Condition: Stable Critical Care Time: Yes Critical Care Time(excluding separately billable procedures): Critical 30-74 mins Referrals: DOCTOR,NO FAMILY [Primary Care Provider] - Follow up/PCP as directed
[2021-06-25 10:35] LABS: Absolute Neutrophil Ct (ANC) 6.37 (1.4-6.9); Basophil (Absolute #) 0.01 (0-0.4); Eosinophil % 0.5 % (0.00-5.0); Eosinophil (Absolute #) 0.04 (0-0.5); Hematocrit 23.8 % (42-50); Hemoglobin 7.5 gm/dl (12.5-18.0); Lymphocyte (Absolute #) 1.32 (1.0-4.6); Lymphocytes % 15.6 % (24.0-44.0); Mean Cell Volume 100.8 fl (78-100); Mean Corpuscular Hemoglobin 31.8 pg (26-32); Mean Corpuscular Hgb Concent. 31.5 g/dl (32-36); Mean Platelet Volume 10.3 fl (7.5-11.0); Monocyte (Absolute #) 0.72 (0.0-1.3); Monocytes % 8.5 % (0.0-12.0); Neutrophil % 75.3 % (36.0-66.0); Platelet Count 189 K/mm3 (150-450); Red Blood Count 2.36 M/mm3 (4.1-5.6); Red Cell Distribution Width 17.4 % (11.5-14.0); White Blood Count 8.5 K/mm3 (4.0-10.5)
[2021-06-25 10:40] LABS: INR 1.46 (0.8-3.0); PROTIME 17.2 SECONDS (9.4-12.5)
[2021-06-25 10:43] LABS: PTT 34.3 SECONDS (25.1-36.5)
[2021-06-25] MEDS ORDERED: PROTONIX 40 MG IV IV ONE ×3 (10:51→12:01)
[2021-06-25 10:56] LABS: ALBUMIN 3.2 g/dL (3.5-5.0); ANION GAP 22.5 MEQ/L (5-15); BILIRUBIN,TOTAL 1.3 mg/dL (0.2-1.3); Calcium 8.7 mg/dL (8.4-10.2); Creatinine 1 1.75 mg/dL (0.66-1.25); EST GLOMERULAR FILTRATION RATE 41.2 ML/MIN; MAGNESIUM 1.5 mg/dL (1.6-2.3); Potassium 5.1 mmol/L (3.5-5.1)
--- NOTE | 2021-06-25 10:57 | XRAY ---
Indication: Cough and short of breath. Comparison: None Portable apical lordotic chest underinflated with minimal bibasilar subsegmental atelectasis/scarring. Remaining heart and lungs unremarkable. Bony thorax intact with mild osteopenia and degenerative changes.
[2021-06-25] MEDS ORDERED: Zosyn 3.375 GM Vial 3.375 GM in Sodium Chloride 100ML MINI-BAG PLUS 100 ML IV ONE (11:05)
[2021-06-25] MEDS ORDERED: PROTONIX 40 MG IV*** 80 MG in Sodium Chloride 0.9% 500 ML 500 ML IV SCH (11:15)
[2021-06-25] MEDS ORDERED: Magnesium 1 Gm / 100 Ml D5W*** 100 ML IV SCH (11:15)
--- NOTE | 2021-06-25 11:44 | XRAY ---
Indication: Pain. Distention. Multiple contiguous axial images obtained through the abdomen and pelvis without contrast. Comparison: None Lung bases demonstrates scattered fibrosis/scarring and subpleural cystic changes bilaterally with small right base calcified granuloma. No infiltrate or effusion. Heart not enlarged. Small hiatal hernia. Visualized distal esophagus demonstrates moderate circumferential wall thickening, possible reflux esophagitis. Cirrhotic appearing liver with large abdominal/pelvic ascites. Noncontrasted stomach and bowel loops appear nonobstructed with minimal sigmoid diverticulosis. No free air. Previous cholecystectomy. A few tiny splenic calcified granulomas. Remaining pancreas, spleen, adrenal glands, kidneys, ureters, and bladder are unremarkable for noncontrast exam. Moderate scattered aortoiliac calcifications without AAA. Osseous structures intact with mild degenerative changes throughout the thoracolumbar spine. Impression: 1. Cirrhotic liver with large abdominal/pelvic ascites. 2. Sigmoid diverticulosis without diverticulitis. 3. Small hiatal hernia with distal esophageal circumferential wall thickening. Rule out reflux esophagitis. 4. Incidental degenerative spondylosis and old granulomatous disease.
[2021-06-25] MEDS ORDERED: Sodium Chloride 0.9% 1000 ML 0 ML ONE (11:50)
[2021-06-25] MEDS ORDERED: Zosyn 3.375 GM Vial IV ONE (11:50)
[2021-06-25] MEDS ORDERED: Sodium Chloride 100ML MINI-BAG PLUS 100 ML IV ONE (11:53)
[2021-06-25] MEDS: Sodium Chloride 0.9% 1000 ML 1,000 ML IV SCH ×2 (11:54→12:03)
[2021-06-25] MEDS ORDERED: Magnesium 1 Gm / 100 Ml D5W*** 200 ML IV ONE (12:00)
[2021-06-25 12:01] LABS: ABO TYPING A; Antibody Screen NEGATIVE (NEGATIVE); RH TYPING POSITIVE
[2021-06-25] MEDS ORDERED: Sodium Chloride 0.9% 1000 ML 1,000 ML ONE (12:01)
[2021-06-25 14:50] LABS: Appearance CLEAR (CLEAR); Bilirubin NEGATIVE (NEGATIVE); Blood NEGATIVE Ery/ul (0-5); Glucose NEGATIVE (NEGATIVE); Ketones NEGATIVE (NEGATIVE); Leukocyte Esterase NEGATIVE (NEGATIVE); Mucus SLIGHT /HPF (NEGATIVE); Nitrite NEGATIVE (NEGATIVE); Protein,Urine Dip NEGATIVE (Negative); Specific Gravity 1.016 (1.005-1.025); Urobilinogen NEGATIVE mg/dL (0-1); WBC 0-2 /HPF (0-5)
[2021-06-25 14:55] LABS: COVID AG -BINAX NOW RAPID TEST NEGATIVE (NEGATIVE)
[2021-06-25 15:28] LABS: CROSS MATCH (PRBC) COMPATIBLE (COMPATIBLE)
[2021-06-25 17:11] VITALS: BP 115/69; PULSE 79; O2SAT 99
== END 2021-06-25 17:15 | disposition short-term general hospital (02) ==
LOC: ED 09:28
DX: N17.9 Acute kidney failure, unspecified (principal); E83.42 Hypomagnesemia; D64.9 Anemia, unspecified; K74.60 Unspecified cirrhosis of liver; I10 Essential (primary) hypertension; E78.5 Hyperlipidemia, unspecified; E11.9 Type 2 diabetes mellitus without complications; R06.02 Shortness of breath; R05.9 Cough, unspecified; K92.2 Gastrointestinal hemorrhage, unspecified
CPT/HCPCS: 36000; 36415; 71045; 74176; 80053; 81001; 83605; 83690; 83735; 83880; 84484; 85018; 85025; 85610; 85730; 86850; 86900; 86901; 86922; 87040; 93005; 93041; 94640; 96374; 96375; 99000; 99285; 99291; P9016; 36430; J3475; A9270-GY

== ENCOUNTER 2021-10-08 18:07 | Emergency (ER) | payer OTHER ==
[2021-10-08 19:03] LABS: Absolute Neutrophil Ct (ANC) 3.28 (1.4-6.9); Basophil (Absolute #) 0.02 (0-0.4); Eosinophil (Absolute #) 0.15 (0-0.5); Hematocrit 28.7 % (42-50); Hemoglobin 9.5 gm/dl (12.5-18.0); Lymphocyte (Absolute #) 0.87 (1.0-4.6); Lymphocytes % 17.4 % (24.0-44.0); Mean Corpuscular Hemoglobin 32.1 pg (26-32); Mean Corpuscular Hgb Concent. 33.1 g/dl (32-36); Mean Platelet Volume 9.1 fl (7.5-11.0); Monocyte (Absolute #) 0.68 (0.0-1.3); Monocytes % 13.6 % (0.0-12.0); Neutrophil % 65.6 % (36.0-66.0); Platelet Count 81 K/mm3 (150-450); Red Blood Count 2.96 M/mm3 (4.1-5.6)
[2021-10-08 19:08] LABS: Bacteria RARE /HPF (NEGATIVE); Epithelial Cells RARE /HPF (FEW); Mucus SLIGHT /HPF (NEGATIVE); RBC 0-2 /HPF (0-2)
[2021-10-08 19:10] LABS: Appearance CLEAR (CLEAR); Bilirubin NEGATIVE (NEGATIVE); Glucose 100 mg/dL (NEGATIVE)
[2021-10-08 19:11] LABS: Dipstick done @ ? MAIN LAB; Ketones NEGATIVE (NEGATIVE); Nitrite NEGATIVE (NEGATIVE); Ph 5.5 (5-6); Protein,Urine Dip NEGATIVE (Negative); RBC NEGATIVE Ery/ul (0-5); Specific Gravity 1.025 (1.005-1.025); Urine Cultured Indicated? NO; Urobilinogen 1 mg/dL (0-1)
[2021-10-08 19:11] LABS: ALBUMIN 2.6 g/dL (3.5-5.0); ALKALINE PHOSPHATASE 118 U/L (38-126); ANION GAP 12.8 MEQ/L (5-15); BLOOD UREA NITROGEN 11 mg/dL (9-20); CHLORIDE 102 mmol/L (98-107); Calcium 8.1 mg/dL (8.4-10.2); Carbon Dioxide 19 mmol/L (22-30); Creatinine 1 0.63 mg/dL (0.66-1.25); EST GLOMERULAR FILTRATION RATE > 60.0 ML/MIN; Glucose 273 mg/dL (74-106); LIPASE 207 U/L (23-300); Potassium 3.8 mmol/L (3.5-5.1); SGOT/AST 37 U/L (17-59); SGPT/ALT 23 U/L (0-50); SODIUM 130 mmol/L (137-145); Total Protein 5.6 g/dL (6.3-8.2)
[2021-10-08 19:20] LABS: MAGNESIUM 1.7 mg/dL (1.6-2.3)
[2021-10-08 19:38] LABS: INR 1.98 (0.8-3.0); PROTIME 23.4 SECONDS (9.4-12.5)
--- NOTE | 2021-10-08 19:41 | ERPHSYRPT ---
- History of Present Illness Time Seen by Provider: 10/08/21 18:21 Source: patient, family Exam Limitations: clinical condition Patient Subjective Stated Complaint: Confusion Triage Nursing Assessment: Patient brought back to ED via w/c and transfererd self to bed. Patient A+O X 2 disoriented to time. Patient's skin pink, warm and dry. Patient's son states patient had CT scan of abdomen and pelvis with contrast yesterday. Patient has had increased confusion the past two days. Patient had recent stent placed to help bypass the liver. Physician History: 71 years old with history of nonalcoholic cirrhosis with recent TIPS procedure done presented in the ER with 2 days history of gradually increasing confusion and not acting himself. Patient feels weak fatigued tired, lack of appetite. Does not have any bowel movement despite taking lactulose. No fever or chills reported. Has some nausea but no vomiting. Has mild generalized abdominal pain which is not any worse than usual. Does report increasing bilateral lower extremity swelling and weight gain. Timing/Duration: day(s) (2), gradual onset, worse Severity: moderate Modifying Factors: Improves With: nothing Associated Symptoms: abdominal pain, loss of appetite, malaise, weakness, No shortness of breath, No cough, No chest pain, No fever, No syncope Allergies/Adverse Reactions: No Known Drug Allergies Allergy (Verified 10/08/21 18:19) Home Medications: Unobtainable 06/25/21 [History] Hx Tetanus, Diphtheria Vaccination/Date Given: No Hx Influenza Vaccination/Date Given: No Hx Pneumococcal Vaccination/Date Given: No Immunizations Up to Date: Yes Travel Risk - International Travel Have you traveled outside of the country in past 3 weeks: No - Coronavirus Screening Are you exhibiting any of the following symptoms?: No Close contact with a COVID-19 positive Pt in past 14-21 Days: No - Vaccine Status Have you recieved a Covid-19 vaccination: Yes [employer] Process: Moderna - Vaccination Dates Date of 2cond Vaccination (if applicable): 09/12/2020 Comment: Booster 08/15/2021 - Review of Systems All Other Systems: Unable due to condition - Past Medical History Pertinent Past Medical History: Yes Cardiac History: Hypertension Endocrine Medical History: Diabetes Type II Other Medical History: liver failure - Past Surgical History Past Surgical History: Yes - Social History Smoking Status: Never smoker Exposure to second hand smoke: No Drug Use: none Patient Lives Alone: Yes (states has help is needed) - Nursing Vital Signs Nursing Vital Signs: Initial Vital Signs Temperature 98.2 F 10/08/21 18:20 Pulse Rate 81 10/08/21 18:20 Respiratory Rate 18 10/08/21 18:20 Blood Pressure 121/60 10/08/21 18:20 O2 Sat by Pulse Oximetry 99 10/08/21 18:20 Pain Scale Pain Intensity 0 - Physical Exam General Appearance: no apparent distress, alert Eye Exam: PERRL/EOMI, eyes nml inspection Ears, Nose, Throat Exam: normal ENT inspection, TMs normal, pharynx normal, moist mucous membranes Neck Exam: normal inspection, supple, full range of motion Respiratory Exam: diminished breath sounds, crackles/rales, No accessory muscle use Cardiovascular Exam: regular rate/rhythm, normal heart sounds Gastrointestinal/Abdomen Exam: soft, normal bowel sounds, tenderness (Mild generalized) Back Exam: normal inspection, normal range of motion Extremity Exam: swelling (Bilateral pedal edema) Neurologic Exam: alert, cooperative, home health attendant II-XII nml as tested, No oriented x 3, No normal mood/affect Skin Exam: normal color SpO2 Interpretation: normal SpO2: 99 O2 Delivery: Room Air Ordered Tests: Active Orders 24 hr Category Date Time Status IV Insertion STAT Care 10/08/21 18:56 Active NPO (ED) STAT Care 10/08/21 18:56 Active ABDOMEN AND PELVIS W/0 CONTRAS [CT] Stat Exams 10/08/21 18:56 Taken BLOOD CULTURE Stat Lab 10/08/21 19:10 Received BNP [NT PRO BNP] Stat Lab 10/08/21 18:50 Completed CBC W DIFF Stat Lab 10/08/21 18:50 Completed CMP Stat Lab 10/08/21 18:50 Completed LIPASE Stat Lab 10/08/21 18:50 Completed Lactic Acid Stat Lab 10/08/21 19:10 Completed Lactic Acid Stat Lab 10/08/21 21:26 Received MAG [MAGNESIUM] Stat Lab 10/08/21 18:50 Completed PROTIME WITH INR Stat Lab 10/08/21 18:56 Completed UA W/RFX CULTURE Stat Lab 10/08/21 19:00 Completed Medication Summary Discontinued Medications Generic Name Dose Route Start Last Admin Trade Name Freq PRN Reason Stop Dose Admin Ceftriaxone Sodium/Dextrose 2 g in 50 mls @ 100 mls/hr 10/08/21 20:59 10/08/21 21:35 Rocephin 2 Gm-D5w 50ml Bag IV 10/08/21 21:28 100 mls/hr STAT STA 100 mls/hr Administration Ceftriaxone Sodium/Dextrose Confirm 10/08/21 21:24 Rocephin 2 Gm-D5w 50ml Bag Administered 10/08/21 21:25 Dose 2 g in 50 mls @ ud IV .STK-MED ONE Lab/Rad Data: Laboratory Result Diagrams 10/08/21 18:50 10/08/21 18:50 Laboratory Results 10/08/21 10/08/21 10/08/21 Range/Units 19:10 19:10 19:00 WBC (4.0-10.5) K/mm3 RBC (4.1-5.6) M/mm3 Hgb (12.5-18.0) gm/dl Hct (42-50) % MCV (78-100) fl MCH (26-32) pg MCHC (32-36) g/dl RDW (11.5-14.0) % Plt Count (150-450) K/mm3 MPV (7.5-11.0) fl Gran % (36.0-66.0) % Eos # (Auto) (0-0.5) Absolute Lymphs (auto) (1.0-4.6) Absolute Monos (auto) (0.0-1.3) Lymphocytes % (24.0-44.0) % Monocytes % (0.0-12.0) % Eosinophils % (0.00-5.0) % Basophils % (0.0-0.4) % Absolute Granulocytes (1.4-6.9) Basophils # (0-0.4) PT (9.4-12.5) SECONDS INR (0.8-3.0) Sodium (137-145) mmol/L Potassium (3.5-5.1) mmol/L Chloride (98-107) mmol/L Carbon Dioxide (22-30) mmol/L Anion Gap (5-15) MEQ/L BUN (9-20) mg/dL Creatinine (0.66-1.25) mg/dL Estimated GFR ML/MIN Glucose (74-106) mg/dL Lactic Acid 2.8 H (0.4-2.0) Calcium (8.4-10.2) mg/dL Magnesium (1.6-2.3) mg/dL Total Bilirubin (0.2-1.3) mg/dL AST (17-59) U/L ALT (0-50) U/L Alkaline Phosphatase (38-126) U/L Ammonia 19 (9-30) umol/L NT-Pro-B Natriuret Pep (0-900) pg/mL Serum Total Protein (6.3-8.2) g/dL Albumin (3.5-5.0) g/dL Lipase (23-300) U/L Urinalys Dipstick Clnc MAIN LAB Urine Color YELLOW (YELLOW) Urine Appearance CLEAR (CLEAR) Urine pH 5.5 (5-6) Ur Specific [place] 1.025 (1.005-1.025) POC Urine Protein Conf NEGATIVE (Negative) Urine Ketones NEGATIVE (NEGATIVE) Urine Nitrite NEGATIVE (NEGATIVE) Urine Bilirubin NEGATIVE (NEGATIVE) Urine Urobilinogen 1 (0-1) mg/dL Urine Leukocytes NEGATIVE (NEGATIVE) Urine WBC (Auto) 3-5 (0-5) /HPF Urine RBC (Auto) 0-2 (0-2) /HPF U Epithel Cells (Auto) RARE (FEW) /HPF Urine Bacteria (Auto) RARE (NEGATIVE) /HPF Urine RBC NEGATIVE (0-5) Shayne/ul Urine Mucus (Auto) SLIGHT (NEGATIVE) /HPF Ur Culture Indicated? NO Urine Glucose 100 (NEGATIVE) mg/dL 10/08/21 10/08/21 10/08/21 Range/Units 18:56 18:50 18:50 WBC (4.0-10.5) K/mm3 RBC (4.1-5.6) M/mm3 Hgb (12.5-18.0) gm/dl Hct (42-50) % MCV (78-100) fl MCH (26-32) pg MCHC (32-36) g/dl RDW (11.5-14.0) % Plt Count (150-450) K/mm3 MPV (7.5-11.0) fl Gran % (36.0-66.0) % Eos # (Auto) (0-0.5) Absolute Lymphs (auto) (1.0-4.6) Absolute Monos (auto) (0.0-1.3) Lymphocytes % (24.0-44.0) % Monocytes % (0.0-12.0) % Eosinophils % (0.00-5.0) % Basophils % (0.0-0.4) % Absolute Granulocytes (1.4-6.9) Basophils # (0-0.4) PT 23.4 H (9.4-12.5) SECONDS INR 1.98 (0.8-3.0) Sodium 130 L (137-145) mmol/L Potassium 3.8 (3.5-5.1) mmol/L Chloride 102 (98-107) mmol/L Carbon Dioxide 19 L (22-30) mmol/L Anion Gap 12.8 (5-15) MEQ/L BUN 11 (9-20) mg/dL Creatinine 0.63 L (0.66-1.25) mg/dL Estimated GFR > 60.0 ML/MIN Glucose 273 H (74-106) mg/dL Lactic Acid (0.4-2.0) Calcium 8.1 L (8.4-10.2) mg/dL Magnesium 1.7 (1.6-2.3) mg/dL Total Bilirubin 2.20 H (0.2-1.3) mg/dL AST 37 (17-59) U/L ALT 23 (0-50) U/L Alkaline Phosphatase 118 (38-126) U/L Ammonia (9-30) umol/L NT-Pro-B Natriuret Pep 2490 H (0-900) pg/mL Serum Total Protein 5.6 L (6.3-8.2) g/dL Albumin 2.6 L (3.5-5.0) g/dL Lipase 207 (23-300) U/L Urinalys Dipstick Clnc Urine Color (YELLOW) Urine Appearance (CLEAR) Urine pH (5-6) Ur Specific [place] (1.005-1.025) POC Urine Protein Conf (Negative) Urine Ketones (NEGATIVE) Urine Nitrite (NEGATIVE) Urine Bilirubin (NEGATIVE) Urine Urobilinogen (0-1) mg/dL Urine Leukocytes (NEGATIVE) Urine WBC (Auto) (0-5) /HPF Urine RBC (Auto) (0-2) /HPF U Epithel Cells (Auto) (FEW) /HPF Urine Bacteria (Auto) (NEGATIVE) /HPF Urine RBC (0-5) Shyane/ul Urine Mucus (Auto) (NEGATIVE) /HPF Ur Culture Indicated? Urine Glucose (NEGATIVE) mg/dL 10/08/21 Range/Units 18:50 WBC 5.0 (4.0-10.5) K/mm3 RBC 2.96 L (4.1-5.6) M/mm3 Hgb 9.5 L (12.5-18.0) gm/dl Hct 28.7 L (42-50) % MCV 97.0 (78-100) fl MCH 32.1 H (26-32) pg MCHC 33.1 (32-36) g/dl RDW 17.0 H (11.5-14.0) % Plt Count 81 L (150-450) K/mm3 MPV 9.1 (7.5-11.0) fl Gran % 65.6 (36.0-66.0) % Eos # (Auto) 0.15 (0-0.5) Absolute Lymphs (auto) 0.87 L (1.0-4.6) Absolute Monos (auto) 0.68 (0.0-1.3) Lymphocytes % 17.4 L (24.0-44.0) % Monocytes % 13.6 H (0.0-12.0) % Eosinophils % 3.0 (0.00-5.0) % Basophils % 0.4 (0.0-0.4) % Absolute Granulocytes 3.28 (1.4-6.9) Basophils # 0.02 (0-0.4) PT (9.4-12.5) SECONDS INR (0.8-3.0) Sodium (137-145) mmol/L Potassium (3.5-5.1) mmol/L Chloride (98-107) mmol/L Carbon Dioxide (22-30) mmol/L Anion Gap (5-15) MEQ/L BUN (9-20) mg/dL Creatinine (0.66-1.25) mg/dL Estimated GFR ML/MIN Glucose (74-106) mg/dL Lactic Acid (0.4-2.0) Calcium (8.4-10.2) mg/dL Magnesium (1.6-2.3) mg/dL Total Bilirubin (0.2-1.3) mg/dL AST (17-59) U/L ALT (0-50) U/L Alkaline Phosphatase (38-126) U/L Ammonia (9-30) umol/L NT-Pro-B Natriuret Pep (0-900) pg/mL Serum Total Protein (6.3-8.2) g/dL Albumin (3.5-5.0) g/dL Lipase (23-300) U/L Urinalys Dipstick Clnc Urine Color (YELLOW) Urine Appearance (CLEAR) Urine pH (5-6) Ur Specific [place] (1.005-1.025) POC Urine Protein Conf (Negative) Urine Ketones (NEGATIVE) Urine Nitrite (NEGATIVE) Urine Bilirubin (NEGATIVE) Urine Urobilinogen (0-1) mg/dL Urine Leukocytes (NEGATIVE) Urine WBC (Auto) (0-5) /HPF Urine RBC (Auto) (0-2) /HPF U Epithel Cells (Auto) (FEW) /HPF Urine Bacteria (Auto) (NEGATIVE) /HPF Urine RBC (0-5) Shayne/ul Urine Mucus (Auto) (NEGATIVE) /HPF Ur Culture Indicated? Urine Glucose (NEGATIVE) mg/dL - Progress Progress: unchanged Progress Note: 10/08/21 22:14 71-year-old is evaluated for confusion post TIPS procedure at [facility]. Has normal white count, chemistries showed total bili of 2.2 and a lactate of 2.8, CT showed some ascites but no other acute changes. Discussed with Dr. Johnson at [place], recommended transfer to [place] hospitalist service. Discussed with Dr. Martin via hospitalist and patient is excepted for transfer. Counseled pt/family regarding: lab results, diagnosis, need for follow-up, rad results - Departure Departure Disposition: Transfer Clinical Impression: Hepatic encephalopathy Condition: Stable Critical Care Time: No Referrals: [facility]OS[facility],'[facility] [Primary Care Provider] - Follow up/PCP as directed
[2021-10-08] MEDS ORDERED: ROCEPHIN 2 Gm-D5w 50ML BAG** 2 G/50 ML IVPB IV STA (20:59)
[2021-10-08] MEDS ORDERED: ROCEPHIN 2 Gm-D5w 50ML BAG** 2 G/50 ML IVPB IV ONE (21:24)
[2021-10-08] MEDS ORDERED: Enulose 10 GM/15 ML PO STA (22:16)
[2021-10-08] MEDS ORDERED: LACTULOSE 20 GM/30ML UD CUP ONE (22:19)
[2021-10-09 02:15] VITALS: BP 100/57; PULSE 75; O2SAT 97
--- NOTE | 2021-10-09 08:52 | XRAY ---
Indication: Cough and short of breath when lying down. Status post TIPS procedure. Stent occlusion. Multiple contiguous axial images obtained through the abdomen and pelvis without contrast. Comparison: June 25, 2021 Lung bases demonstrates new small bibasilar effusions with mild compressive atelectasis. There remains scattered pulmonary fibrosis/scarring and small right base calcified granuloma. Heart not enlarged. Again small hiatal hernia. Noncontrasted stomach and bowel loops nonobstructed. There is now mild diffuse scattered colonic fecal debris. Again cirrhotic liver with new portal shunt stent. There remains moderate abdomen/pelvic ascites, less than before. No free air. Spleen is now enlarged measuring 15 cm. Again cholecystectomy clips and tiny splenic calcified granulomas. Remaining pancreas, adrenal glands, kidneys, ureters, and bladder are unremarkable for noncontrast exam. Again moderate scattered aortoiliac calcifications without AAA. Osseous structures intact again with mild degenerative changes throughout the thoracolumbar spine and both hips. Impression: 1. Status post TIPS procedure. Portal stent patency is best evaluated with sonogram. 2. New small bibasilar effusions without cardiomegaly. Rule out noncardiogenic causes. 3. Again cirrhotic liver with abdominal/pelvic ascites. New splenomegaly. 4. Again chronic findings including small hiatal hernia, arteriosclerotic disease, chronic bony findings, and old granulomatous disease.
[2021-10-09 18:24] LABS: Slide Review 1 YES
== END 2021-10-09 03:00 ==
LOC: ED 18:07
DX: K72.90 Hepatic failure, unspecified without coma (principal); R41.0 Disorientation, unspecified; R53.1 Weakness; I10 Essential (primary) hypertension; E11.9 Type 2 diabetes mellitus without complications
CPT/HCPCS: 36000; 36415; 74176; 80053; 81015; 82140; 83605; 83690; 83735; 83880; 85025; 85610; 87040; 99285; J0696; A9270-GY

== ENCOUNTER 2021-12-03 11:09 | Emergency (ER) | payer OTHER ==
--- NOTE | 2021-12-03 11:34 | XRAY ---
Indication: Mental status change. Stage IV liver cancer. Comparison: June 25, 2021. Portable chest better inflated and clear again with incidental right base calcified granuloma. Heart not enlarged. Bony thorax intact again with osteopenia and degenerative changes. Upper abdomen demonstrates new right upper quadrant portal venous shunt stent. Impression: Nonacute chest with chronic features.
--- NOTE | 2021-12-03 11:34 | ERPHSYRPT ---
- History of Present Illness Source: patient, other (Daughter) Exam Limitations: clinical condition Patient Subjective Stated Complaint: Weakness Triage Nursing Assessment: Patient brought back to ED per EMS and transferred to bed with assist of 2. Patient Alert to self only. Patient's skin jaundiced, warm and dry. Patient has dx of stage 4 liver failure and is need of transplant. Patient was found lying on floor by family naked and confused. Patient denies pain or discomfort. Lungs clear a/p rogelio. Physician History: 71 yo wm w end stage hepatic disease due to GRIMES presents w mental status changes x 1 day. [facility] next [facility]. History mainly per daughter who states that he has been taking his lactulose and is typically alert, oriented x3, still driving, and living independently. He has had a little nausea wo vomiting due to lactulose and had a large amount of loose stool x1. Daughter denies fever/cough/coryza/melena/hematochezia/focal weakness. Pt alert but oriented to name only. Timing/Duration: yesterday Severity: moderate Character of Deficits: new weakness (Generalized) Baseline/Normal Cognition: alert oriented x 3 Current Cognition: alert/disoriented to time Baseline Gait: walks w/o assistance Associated Symptoms: confusion, fatigue, nausea, weakness, No fever, No chills, No loss of consciousness, No vomiting, No insomnia, No muscle spasms, No numbness/tingling in legs/feet, No paresthesia, No ringing in ears, No seizures, No slurred speech, No trouble walking, No vision changes, No chest pain, No hea dache Allergies/Adverse Reactions: No Known Drug Allergies Allergy (Verified 12/03/21 11:39) Home Medications: Unobtainable 06/25/21 [History] Hx Tetanus, Diphtheria Vaccination/Date Given: No Hx Influenza Vaccination/Date Given: No Hx Pneumococcal Vaccination/Date Given: No Immunizations Up to Date: Yes Travel Risk - International Travel Have you traveled outside of the country in past 3 weeks: No - Coronavirus Screening Are you exhibiting any of the following symptoms?: No Close contact with a COVID-19 positive Pt in past 14-21 Days: No - Vaccine Status Have you recieved a Covid-19 vaccination: Yes Office Agent: Moderna - Vaccination Dates Date of 2cond Vaccination (if applicable): 09/12/2020 Comment: Booster 04/28/2021 - Review of Systems Constitutional: No Symptoms, Weakness Eyes: No Symptoms Ears, Nose, & Throat: No Symptoms Respiratory: No Symptoms Cardiac: No Symptoms Abdominal/Gastrointestinal: No Symptoms, Nausea, Diarrhea, No Abdominal Pain, No Vomiting, No Constipation, No Hematemesis, No Hematochezia, No Melena, No Dysphagia, No Appetite Changes Genitourinary Symptoms: No Symptoms Musculoskeletal: No Symptoms Skin: No Symptoms Neurological: No Symptoms Psychological: No Symptoms Endocrine: No Symptoms Hematologic/Lymphatic: No Symptoms Immunological/Allergic: No Symptoms - Past Medical History Pertinent Past Medical History: Yes Cardiac History: High Cholesterol, Hypertension Endocrine Medical History: Diabetes Type II GI Medical History: GERD Other Medical History: liver failure - Past Surgical History Past Surgical History: Yes Neuro Surgical History: No Pertinent History Cardiac: No Pertinent History Respiratory: No Pertinent History Gastrointestinal: Cholecystectomy, Other Genitourinary: No Pertinent History Musculoskeletal: No Pertinent History Male Surgical History: No Pertinent History Other Surgical History: liver stent - Social History Smoking Status: Never smoker Exposure to second hand smoke: No Drug Use: none Patient Lives Alone: Yes (states has help is needed) Significant Family History: no pertinent family hx - Nursing Vital Signs Nursing Vital Signs: Initial Vital Signs Temperature 97.6 F 12/03/21 11:17 Pulse Rate 73 12/03/21 11:17 Respiratory Rate 18 12/03/21 11:17 Blood Pressure 173/93 12/03/21 11:17 O2 Sat by Pulse Oximetry 99 12/03/21 11:17 Pain Scale Pain Intensity 0 Hypertensive - Sallis Coma Scale Best Eye Response (Eulalio): (4) open spontaneously Best Verbal Response (Sallis): (4) confused conversation Best Motor Response (Eulalio): (6) obeys commands Sallis Total: 14 - Physical Exam General Appearance: no apparent distress Eye Exam: bilateral eye: normal inspection, PERRL, EOMI Ears, Nose, Throat Exam: normal ENT inspection, TMs normal, pharynx normal, moist mucous membranes Neck Exam: normal inspection, non-tender, supple, full range of motion, No meningismus, No mass, No Brudzinski, No Kernig's Respiratory: crackles/rales (Faint bibasilar), No prolonged expirations Cardiovascular: regular rate/rhythm, normal heart sounds, normal peripheral pulses, No murmur Gastrointestinal: soft, normal bowel sounds, No tenderness Back Exam: normal inspection, normal range of motion, No CVA tenderness Extremity Exam: normal inspection, normal range of motion Mental Status: alert (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[employer] Exam: normal hearing, normal speech, PERRL Motor/Sensory: no motor deficit, no sensory deficit, no pronator drift, negative Babinski's sign DTR: bicep (R): 2+, bicep (L): 2+ Skin Exam: normal color, warm, dry SpO2 Interpretation: normal SpO2: 99 O2 Delivery: Room Air - Course Nursing assessment & vital signs reviewed: Yes EKG Interpreted by Me: RATE (NSR/Rate73/Borderline prolonged QTc/Nonspecific ST- T wave changes) - Radiology Exams Chest X-ray Interpretation: Discussed w/ radiologist (CXR neg) - CT Exams Head CT Interpretation: Discussed w/radiologist (Chronic L sphenoid sinus ds/Nothing acute) Ordered Tests: Active Orders 24 hr Category Date Time Status EKG-ER Only STAT Care 12/03/21 11:14 Completed [place] [Catheter-[place] Sal[place]o] STAT Care 12/03/21 11:35 Completed IV Insertion STAT Care 12/03/21 11:14 Completed CHEST 1 VIEW (PORTABLE) Stat Exams 12/03/21 11:16 Completed HEAD WITHOUT CONTRAST [CT] Stat Exams 12/03/21 12:16 Completed AMYLASE Stat Lab 12/03/21 11:56 Completed CBC W DIFF Stat Lab 12/03/21 11:56 Completed CMP Stat Lab 12/03/21 11:56 Completed LIPASE Stat Lab 12/03/21 11:56 Completed Lactic Acid Stat Lab 12/03/21 11:14 Completed Lactic Acid Stat Lab 12/03/21 13:51 Completed PROTIME WITH INR Stat Lab 12/03/21 11:56 Completed PTT Stat Lab 12/03/21 11:56 Completed TROPONIN Q3H Lab 12/03/21 11:56 Completed TROPONIN Q3H Lab 12/03/21 13:50 Completed TROPONIN Q3H Lab 12/03/21 17:15 Ordered TROPONIN Q3H Lab 12/03/21 20:15 Ordered TROPONIN Q3H Lab 12/03/21 23:15 Ordered UA W/RFX CULTURE Stat Lab 12/03/21 11:36 Completed Medication Summary Discontinued Medications Generic Name Dose Route Start Last Admin Trade Name Tracie PRN Reason Stop Dose Admin Lactulose 20 gm 12/03/21 14:30 12/03/21 14:40 Lactulose 20 Gm/30 Ml Udcup PO 12/03/21 14:31 20 gm NOW ONE Administration Ondansetron HCl 4 mg 12/03/21 14:51 12/03/21 14:53 Ondansetron Hcl 4 Mg/2 Ml Vial IV 12/03/21 14:52 4 mg STAT ONE Administration Ondansetron HCl Confirm 12/03/21 14:51 Ondansetron Hcl 4 Mg/2 Ml Vial Administered 12/03/21 14:52 Dose 4 mg .ROUTE .STK-MED ONE Lab/Rad Data: Laboratory Result Diagrams 12/03/21 11:56 12/03/21 11:56 Laboratory Results 12/03/21 12/03/21 12/03/21 Range/Units 13:51 13:50 11:56 WBC (4.0-10.5) x10^3/uL RBC (4.1-5.6) x10^6/uL Hgb (12.5-18.0) g/dL Hct (42-50) % MCV (78-100) fL MCH (26-32) pg MCHC (32-36) g/dL RDW (11.5-14.0) % Plt Count (150-450) x10^3/uL MPV (7.5-11.0) fL Gran % (36.0-66.0) % Immature Gran % (Auto) (0.00-0.4) % Nucleat RBC Rel Count (0.00-0.1) % Eos # (Auto) (0-0.5) x10^3/uL Immature Gran # (Auto) (0.00-0.03) x10^3u/L Absolute Lymphs (auto) (1.0-4.6) x10^3/uL Absolute Monos (auto) (0.0-1.3) x10^3/uL Absolute Nucleated RBC (0.00-0.01) x10^3u/L Lymphocytes % (24.0-44.0) % Monocytes % (0.0-12.0) % Eosinophils % (0.00-5.0) % Basophils % (0.0-0.4) % Absolute Granulocytes (1.4-6.9) x10^3/uL Basophils # (0-0.4) x10^3/uL PT 14.6 H (9.4-12.5) SECONDS INR 1.42 (0.8-3.0) APTT 33.1 (25.1-36.5) SECONDS Sodium (137-145) mmol/L Potassium (3.5-5.1) mmol/L Chloride (98-107) mmol/L Carbon Dioxide (22-30) mmol/L Anion Gap (5-15) MEQ/L BUN (9-20) mg/dL Creatinine (0.66-1.25) mg/dL Estimated GFR ML/MIN Glucose (74-106) mg/dL Lactic Acid 3.2 H (0.4-2.0) Calcium (8.4-10.2) mg/dL Total Bilirubin (0.2-1.3) mg/dL AST (17-59) U/L ALT (0-50) U/L Alkaline Phosphatase (38-126) U/L Ammonia (9-30) umol/L Troponin I < 0.012 (0.000-0.034) ng/mL Serum Total Protein (6.3-8.2) g/dL Albumin (3.5-5.0) g/dL Amylase (30-110) U/L Lipase (23-300) U/L Urinalys Dipstick Clnc Urine Color (YELLOW) Urine Appearance (CLEAR) Urine pH (5-6) Ur Specific [place] (1.005-1.025) POC Urine Protein Conf (Negative) Urine Ketones (NEGATIVE) Urine Nitrite (NEGATIVE) Urine Bilirubin (NEGATIVE) Urine Urobilinogen (0-1) mg/dL Urine Leukocytes (NEGATIVE) Urine WBC (Auto) (0-5) /HPF Urine RBC (Auto) (0-2) /HPF U Epithel Cells (Auto) (FEW) /HPF Urine RBC (0-5) Shayne/ul Ur Culture Indicated? Urine Glucose (NEGATIVE) mg/dL Influenza Type A Ag (NEGATIVE) Influenza Type B Ag (NEGATIVE) RSV (PCR) (Negative) SARS-CoV-2 (PCR) (NEGATIVE) Slides for Path Review 12/03/21 12/03/21 12/03/21 Range/Units 11:56 11:56 11:56 WBC (4.0-10.5) x10^3/uL RBC (4.1-5.6) x10^6/uL Hgb (12.5-18.0) g/dL Hct (42-50) % MCV (78-100) fL MCH (26-32) pg MCHC (32-36) g/dL RDW (11.5-14.0) % Plt Count (150-450) x10^3/uL MPV (7.5-11.0) fL Gran % (36.0-66.0) % Immature Gran % (Auto) (0.00-0.4) % Nucleat RBC Rel Count (0.00-0.1) % Eos # (Auto) (0-0.5) x10^3/uL Immature Gran # (Auto) (0.00-0.03) x10^3u/L Absolute Lymphs (auto) (1.0-4.6) x10^3/uL Absolute Monos (auto) (0.0-1.3) x10^3/uL Absolute Nucleated RBC (0.00-0.01) x10^3u/L Lymphocytes % (24.0-44.0) % Monocytes % (0.0-12.0) % Eosinophils % (0.00-5.0) % Basophils % (0.0-0.4) % Absolute Granulocytes (1.4-6.9) x10^3/uL Basophils # (0-0.4) x10^3/uL PT (9.4-12.5) SECONDS INR (0.8-3.0) APTT (25.1-36.5) SECONDS Sodium (137-145) mmol/L Potassium (3.5-5.1) mmol/L Chloride (98-107) mmol/L Carbon Dioxide (22-30) mmol/L Anion Gap (5-15) MEQ/L BUN (9-20) mg/dL Creatinine (0.66-1.25) mg/dL Estimated GFR ML/MIN Glucose (74-106) mg/dL Lactic Acid (0.4-2.0) Calcium (8.4-10.2) mg/dL Total Bilirubin (0.2-1.3) mg/dL AST (17-59) U/L ALT (0-50) U/L Alkaline Phosphatase (38-126) U/L Ammonia 69 H (9-30) umol/L Troponin I < 0.012 (0.000-0.034) ng/mL Serum Total Protein (6.3-8.2) g/dL Albumin (3.5-5.0) g/dL Amylase (30-110) U/L Lipase (23-300) U/L Urinalys Dipstick Clnc Urine Color (YELLOW) Urine Appearance (CLEAR) Urine pH (5-6) Ur Specific [place] (1.005-1.025) POC Urine Protein Conf (Negative) Urine Ketones (NEGATIVE) Urine Nitrite (NEGATIVE) Urine Bilirubin (NEGATIVE) Urine Urobilinogen (0-1) mg/dL Urine Leukocytes (NEGATIVE) Urine WBC (Auto) (0-5) /HPF Urine RBC (Auto) (0-2) /HPF U Epithel Cells (Auto) (FEW) /HPF Urine RBC (0-5) Shayne/ul Ur Culture Indicated? Urine Glucose (NEGATIVE) mg/dL Influenza Type A Ag NEGATIVE (NEGATIVE) Influenza Type B Ag NEGATIVE (NEGATIVE) RSV (PCR) NEGATIVE (Negative) SARS-CoV-2 (PCR) NEGATIVE (NEGATIVE) Slides for Path Review 12/03/21 12/03/21 12/03/21 Range/Units 11:56 11:56 11:36 WBC 6.5 (4.0-10.5) x10^3/uL RBC 3.98 L (4.1-5.6) x10^6/uL Hgb 13.2 (12.5-18.0) g/dL Hct 37.6 L (42-50) % MCV 94.5 (78-100) fL MCH 33.2 H (26-32) pg MCHC 35.1 (32-36) g/dL RDW 17.0 H (11.5-14.0) % Plt Count 90 L (150-450) x10^3/uL MPV 9.5 (7.5-11.0) fL Gran % 70.6 H (36.0-66.0) % Immature Gran % (Auto) 0.3 (0.00-0.4) % Nucleat RBC Rel Count 0.0 (0.00-0.1) % Eos # (Auto) 0.19 (0-0.5) x10^3/uL Immature Gran # (Auto) 0.02 (0.00-0.03) x10^3u/L Absolute Lymphs (auto) 1.02 (1.0-4.6) x10^3/uL Absolute Monos (auto) 0.66 (0.0-1.3) x10^3/uL Absolute Nucleated RBC 0.00 (0.00-0.01) x10^3u/L Lymphocytes % 15.6 L (24.0-44.0) % Monocytes % 10.1 (0.0-12.0) % Eosinophils % 2.9 (0.00-5.0) % Basophils % 0.5 (0.0-0.4) % Absolute Granulocytes 4.62 (1.4-6.9) x10^3/uL Basophils # 0.03 (0-0.4) x10^3/uL PT (9.4-12.5) SECONDS INR (0.8-3.0) APTT (25.1-36.5) SECONDS Sodium 126 L (137-145) mmol/L Potassium 4.0 (3.5-5.1) mmol/L Chloride 92 L (98-107) mmol/L Carbon Dioxide 27 (22-30) mmol/L Anion Gap 11.7 (5-15) MEQ/L BUN 15 (9-20) mg/dL Creatinine 0.91 (0.66-1.25) mg/dL Estimated GFR > 60.0 ML/MIN Glucose 216 H (74-106) mg/dL Lactic Acid (0.4-2.0) Calcium 9.3 (8.4-10.2) mg/dL Total Bilirubin 5.00 H (0.2-1.3) mg/dL AST 83 H (17-59) U/L ALT 54 H (0-50) U/L Alkaline Phosphatase 211 H (38-126) U/L Ammonia (9-30) umol/L Troponin I (0.000-0.034) ng/mL Serum Total Protein 7.6 (6.3-8.2) g/dL Albumin 3.0 L (3.5-5.0) g/dL Amylase 115 H (30-110) U/L Lipase 151 (23-300) U/L Urinalys Dipstick Clnc MAIN LAB Urine Color YELLOW (YELLOW) Urine Appearance CLEAR (CLEAR) Urine pH 7.0 (5-6) Ur Specific [place] 1.020 (1.005-1.025) POC Urine Protein Conf NEGATIVE (Negative) Urine Ketones NEGATIVE (NEGATIVE) Urine Nitrite NEGATIVE (NEGATIVE) Urine Bilirubin NEGATIVE (NEGATIVE) Urine Urobilinogen 4 (0-1) mg/dL Urine Leukocytes NEGATIVE (NEGATIVE) Urine WBC (Auto) 0-2 (0-5) /HPF Urine RBC (Auto) 0-2 (0-2) /HPF U Epithel Cells (Auto) RARE (FEW) /HPF Urine RBC TRACE-INTACT (0-5) Shayne/ul Ur Culture Indicated? NO Urine Glucose NEGATIVE (NEGATIVE) mg/dL Influenza Type A Ag (NEGATIVE) Influenza Type B Ag (NEGATIVE) RSV (PCR) (Negative) SARS-CoV-2 (PCR) (NEGATIVE) Slides for Path Review YES 12/03/21 Range/Units 11:14 WBC (4.0-10.5) x10^3/uL RBC (4.1-5.6) x10^6/uL Hgb (12.5-18.0) g/dL Hct (42-50) % MCV (78-100) fL MCH (26-32) pg MCHC (32-36) g/dL RDW (11.5-14.0) % Plt Count (150-450) x10^3/uL MPV (7.5-11.0) fL Gran % (36.0-66.0) % Immature Gran % (Auto) (0.00-0.4) % Nucleat RBC Rel Count (0.00-0.1) % Eos # (Auto) (0-0.5) x10^3/uL Immature Gran # (Auto) (0.00-0.03) x10^3u/L Absolute Lymphs (auto) (1.0-4.6) x10^3/uL Absolute Monos (auto) (0.0-1.3) x10^3/uL Absolute Nucleated RBC (0.00-0.01) x10^3u/L Lymphocytes % (24.0-44.0) % Monocytes % (0.0-12.0) % Eosinophils % (0.00-5.0) % Basophils % (0.0-0.4) % Absolute Granulocytes (1.4-6.9) x10^3/uL Basophils # (0-0.4) x10^3/uL PT (9.4-12.5) SECONDS INR (0.8-3.0) APTT (25.1-36.5) SECONDS Sodium (137-145) mmol/L Potassium (3.5-5.1) mmol/L Chloride (98-107) mmol/L Carbon Dioxide (22-30) mmol/L Anion Gap (5-15) MEQ/L BUN (9-20) mg/dL Creatinine (0.66-1.25) mg/dL Estimated GFR ML/MIN Glucose (74-106) mg/dL Lactic Acid 3.4 H (0.4-2.0) Calcium (8.4-10.2) mg/dL Total Bilirubin (0.2-1.3) mg/dL AST (17-59) U/L ALT (0-50) U/L Alkaline Phosphatase (38-126) U/L Ammonia (9-30) umol/L Troponin I (0.000-0.034) ng/mL Serum Total Protein (6.3-8.2) g/dL Albumin (3.5-5.0) g/dL Amylase (30-110) U/L Lipase (23-300) U/L Urinalys Dipstick Clnc Urine Color (YELLOW) Urine Appearance (CLEAR) Urine pH (5-6) Ur Specific [place] (1.005-1.025) POC Urine Protein Conf (Negative) Urine Ketones (NEGATIVE) Urine Nitrite (NEGATIVE) Urine Bilirubin (NEGATIVE) Urine Urobilinogen (0-1) mg/dL Urine Leukocytes (NEGATIVE) Urine WBC (Auto) (0-5) /HPF Urine RBC (Auto) (0-2) /HPF U Epithel Cells (Auto) (FEW) /HPF Urine RBC (0-5) Shayne/ul Ur Culture Indicated? Urine Glucose (NEGATIVE) mg/dL Influenza Type A Ag (NEGATIVE) Influenza Type B Ag (NEGATIVE) RSV (PCR) (Negative) SARS-CoV-2 (PCR) (NEGATIVE) Slides for Path Review - Progress Progress Note: 12/03/21 15:02 [facility] due to being on diversion Pt accepted by Dr. Blackman/Dr. Portillo at [facility] 12/03/21 16:07 20gms po Lactulose Counseled pt/family regarding: lab results, diagnosis, rad results - Departure Departure Disposition: Transfer Clinical Impression: Hepatic encephalopathy, Liver failure Condition: Stable Critical Care Time: No Referrals: [facility]OSPITAL,'S [Primary Care Provider] - Follow up/PCP as directed
[2021-12-03 11:50] LABS: Absolute Neutrophil Ct (ANC) 4.62 x10^3/uL (1.4-6.9); Basophil (Absolute #) 0.03 x10^3/uL (0-0.4); Eosinophil % 2.9 % (0.00-5.0); Eosinophil (Absolute #) 0.19 x10^3/uL (0-0.5); Hematocrit 37.6 % (42-50); Hemoglobin 13.2 g/dL (12.5-18.0); Lymphocyte (Absolute #) 1.02 x10^3/uL (1.0-4.6); Lymphocytes % 15.6 % (24.0-44.0); Mean Cell Volume 94.5 fL (78-100); Mean Corpuscular Hemoglobin 33.2 pg (26-32); Mean Corpuscular Hgb Concent. 35.1 g/dL (32-36); Mean Platelet Volume 9.5 fL (7.5-11.0); Monocyte (Absolute #) 0.66 x10^3/uL (0.0-1.3); Monocytes % 10.1 % (0.0-12.0); Neutrophil % 70.6 % (36.0-66.0); Platelet Count 90 x10^3/uL (150-450); Red Blood Count 3.98 x10^6/uL (4.1-5.6); White Blood Count 6.5 x10^3/uL (4.0-10.5)
[2021-12-03 12:05] LABS: Epithelial Cells RARE /HPF (FEW); RBC 0-2 /HPF (0-2); WBC 0-2 /HPF (0-5)
[2021-12-03 12:09] LABS: Appearance CLEAR (CLEAR); Bilirubin NEGATIVE (NEGATIVE); Glucose NEGATIVE (NEGATIVE); Ketones NEGATIVE (NEGATIVE); Protein,Urine Dip NEGATIVE (Negative); RBC TRACE-INTACT Ery/ul (0-5)
[2021-12-03 12:10] LABS: Dipstick done @ ? MAIN LAB; Nitrite NEGATIVE (NEGATIVE); Urine Cultured Indicated? NO; Urobilinogen 4 mg/dL (0-1)
[2021-12-03 12:10] LABS: ALKALINE PHOSPHATASE 211 U/L (38-126); AMYLASE 115 U/L (30-110); ANION GAP 11.7 MEQ/L (5-15); BLOOD UREA NITROGEN 15 mg/dL (9-20); CHLORIDE 92 mmol/L (98-107); Calcium 9.3 mg/dL (8.4-10.2); Carbon Dioxide 27 mmol/L (22-30); Creatinine 1 0.91 mg/dL (0.66-1.25); EST GLOMERULAR FILTRATION RATE > 60.0 ML/MIN; Glucose 216 mg/dL (74-106); LIPASE 151 U/L (23-300); SGOT/AST 83 U/L (17-59); SGPT/ALT 54 U/L (0-50); SODIUM 126 mmol/L (137-145); Total Protein 7.6 g/dL (6.3-8.2)
[2021-12-03 12:12] LABS: INR 1.42 (0.8-3.0); PROTIME 14.6 SECONDS (9.4-12.5); PTT 33.1 SECONDS (25.1-36.5)
[2021-12-03 12:25] LABS: INFLUENZA A NEGATIVE (NEGATIVE); INFLUENZA B NEGATIVE (NEGATIVE); RESPIRATORY SYNCTIAL VIRUS NEGATIVE (Negative); SARS-CoV-2 Xpert Express NEGATIVE (NEGATIVE)
[2021-12-03 12:27] VITALS: O2SAT 99
--- NOTE | 2021-12-03 12:39 | XRAY ---
Indication: Confusion. Multiple contiguous axial images obtained through the head without contrast. Comparison: None Normal appearing brain parenchyma, ventricles, and bony calvarium for patient's age. Chronic appearing mucoperiosteal thickening left sphenoid sinus. Remaining visualized paranasal sinuses and mastoid air cells are clear. Impression: Chronic appearing left sphenoid sinus disease. Remaining CT head without contrast exam is normal.
[2021-12-03] MEDS ORDERED: Enulose 10 GM/15 ML PO ONE (14:13)
[2021-12-03] MEDS ORDERED: LACTULOSE 20 GM/30ML UD CUP PO ONE (14:30)
[2021-12-03] MEDS ORDERED: Zofran 4 MG/2 ML VIAL IV ONE (14:51)
[2021-12-03] MEDS ORDERED: Zofran 4 MG/2 ML VIAL ONE (14:51)
[2021-12-03 15:03] VITALS: BP 140/68; PULSE 72
[2021-12-03 16:03] LABS: Slide Review 1 YES
== END 2021-12-03 15:40 | disposition short-term general hospital (02) ==
LOC: ED 11:09
DX: K72.90 Hepatic failure, unspecified without coma (principal); R41.82 Altered mental status, unspecified; K75.81 Nonalcoholic steatohepatitis (NASH); E78.5 Hyperlipidemia, unspecified; I10 Essential (primary) hypertension; E11.9 Type 2 diabetes mellitus without complications
CPT/HCPCS: 0241U; 36000; 36415; 51702; 70450; 71045; 80053; 81015; 82140; 82150; 83605; 83690; 84484; 85025; 85610; 85730; 93005; 96374; 99285; 96376; J2405; A9270-GY

== ENCOUNTER 2022-06-01 19:19 | Observation (INO) | payer OTHER, MEDICARE ==
[2022-06-01 20:00] LABS: Absolute Neutrophil Ct (ANC) 1.73 x10^3/uL (1.4-6.9); Basophil (Absolute #) 0.01 x10^3/uL (0-0.4); Eosinophil % 6.6 % (0.00-5.0); Eosinophil (Absolute #) 0.22 x10^3/uL (0-0.5); Hematocrit 22.3 % (42-50); Mean Cell Volume 89.2 fL (78-100); Mean Corpuscular Hgb Concent. 29.1 g/dL (32-36); Mean Platelet Volume 9.8 fL (7.5-11.0); Monocyte (Absolute #) 0.56 x10^3/uL (0.0-1.3); Monocytes % 16.8 % (0.0-12.0); Platelet Count 73 x10^3/uL (150-450); Red Cell Distribution Width 20.2 % (11.5-14.0); White Blood Count 3.3 x10^3/uL (4.0-10.5)
[2022-06-01 20:12] LABS: INR 1.49 (0.8-3.0); PROTIME 15.2 SECONDS (9.4-12.5)
[2022-06-01 20:14] LABS: ALBUMIN 2.7 g/dL (3.5-5.0); ALKALINE PHOSPHATASE 185 U/L (38-126); ANION GAP 7.6 MEQ/L (5-15); BLOOD UREA NITROGEN 6 mg/dL (9-20); CHLORIDE 104 mmol/L (98-107); Calcium 8.2 mg/dL (8.4-10.2); Carbon Dioxide 26 mmol/L (22-30); Creatinine 1 0.77 mg/dL (0.66-1.25); EST GLOMERULAR FILTRATION RATE > 60.0 ML/MIN; Glucose 143 mg/dL (74-106); Potassium 3.8 mmol/L (3.5-5.1); SGOT/AST 45 U/L (17-59); SGPT/ALT 25 U/L (0-50); SODIUM 134 mmol/L (137-145); Total Protein 7.2 g/dL (6.3-8.2)
[2022-06-01 20:15] LABS: Hemoglobin 6.5 g/dL (12.5-18.0)
--- NOTE | 2022-06-01 21:28 | ERPHSYRPT ---
- History of Present Illness Time Seen by Provider: 06/01/22 19:37 Source: patient, family Exam Limitations: no limitations Patient Subjective Stated Complaint: pt stated he had labs drawn today at [facility] in [place], and they called and told him his blood level was 6.4, and to come to [facility] to get it rechecked. pt states he is on liver transplant list, has had blood transfusion in the past couple months at [facility]. pt states he has felt a little weaker than usual, and a little SOB Triage Nursing Assessment: pt ambulated to room, stepped scale for weight. pt is alert and oriented, accompanied by son Physician History: 72-year-old with history of GRIMES/cirrhosis on lactulose, on transplant list at , chronic anemia needing transfusions in the past had blood work done today at [facility] and was called prior to arrival that his hemoglobin is 6.4. Patient denies any dark stool, coffee-ground emesis. Denies any abdominal pain. Has shortness of breath at his baseline which is a little worse than usual and feels little more fatigued and tired than usual for the last couple of days. No chest pain otherwise. Allergies/Adverse Reactions: No Known Drug Allergies Allergy (Verified 06/02/22 01:02) Home Medications: Aspirin EC 81 mg [Ecotrin 81 mg] 81 mg PO DAILY 06/02/22 [History] Atorvastatin Calcium [Lipitor] 10 mg PO HS 06/02/22 [History] Calcium Carbonate/Vitamin D3 [Calcium 600 mg-D3 20 Mcg Tab] 1 tab PO DAILY 06/02/22 [History] Folic Acid 1 mg [Folate 1 mg] 2 mg PO DAILY 06/02/22 [History] Lactulose 45 ml PO QID 06/02/22 [History] PANTOPRAZOLE 40 mg Tablet [Protonix 40MG Tablet] 40 mg PO BID 06/02/22 [History] Rifaximin [Xifaxan] 550 mg PO BID 06/02/22 [History] Spironolactone 25 mg [Aldactone 25 MG] 25 mg PO DAILY 06/02/22 [History] Hx Tetanus, Diphtheria Vaccination/Date Given: No Hx Influenza Vaccination/Date Given: Yes Hx Pneumococcal Vaccination/Date Given: No Travel Risk - International Travel Have you traveled outside of the country in past 3 weeks: No - Coronavirus Screening Are you exhibiting any of the following symptoms?: Yes Symptoms: Shortness of Breath - Vaccine Status Have you recieved a Covid-19 vaccination: Yes [employer]: [employer] - Vaccination Dates Date of 2cond Vaccination (if applicable): 09/12/20 Comment: booster 09/12/20 - Review of Systems Constitutional: Fatigue, Weakness Eyes: No Symptoms Ears, Nose, & Throat: No Symptoms Respiratory: Dyspnea Cardiac: No Symptoms Abdominal/Gastrointestinal: No Symptoms Genitourinary Symptoms: No Symptoms Musculoskeletal: No Symptoms Neurological: No Symptoms Psychological: No Symptoms Endocrine: No Symptoms Hematologic/Lymphatic: Anemia - Past Medical History Pertinent Past Medical History: Yes Neurological History: No Pertinent History Cardiac History: High Cholesterol, Hypertension Respiratory History: No Pertinent History Endocrine Medical History: Diabetes Type II GI Medical History: GERD History: No Pertinent History Psycho-Social History: No Pertinent History Male Reproductive Disorders: No Pertinent History Other Medical History: liver failure, waiting for transplant - Past Surgical History Past Surgical History: Yes Neuro Surgical History: No Pertinent History Cardiac: Cardiac Stent Respiratory: No Pertinent History Gastrointestinal: Cholecystectomy, Other Genitourinary: No Pertinent History Musculoskeletal: No Pertinent History Male Surgical History: No Pertinent History Other Surgical History: liver stent - Social History Smoking Status: Former smoker Exposure to second hand smoke: No Drug Use: none Patient Lives Alone: No (with son) Significant Family History: no pertinent family hx - Nursing Vital Signs Nursing Vital Signs: Initial Vital Signs Temperature 97.6 F 06/01/22 19:20 Pulse Rate 89 06/01/22 19:20 Respiratory Rate 20 06/01/22 19:20 Blood Pressure 145/73 06/01/22 19:20 O2 Sat by Pulse Oximetry 100 06/01/22 19:20 Pain Scale Pain Intensity 0 - Physical Exam General Appearance: no apparent distress, alert Eye Exam: PERRL/EOMI Ears, Nose, Throat Exam: normal ENT inspection Neck Exam: normal inspection, non-tender, supple, full range of motion Respiratory Exam: normal breath sounds, lungs clear Cardiovascular Exam: regular rate/rhythm, normal heart sounds Gastrointestinal/Abdomen Exam: soft, normal bowel sounds, No tenderness Back Exam: normal inspection, normal range of motion Extremity Exam: normal inspection, normal range of motion Neurologic Exam: alert, oriented x 3, chief gauger II-XII nml as tested, normal mood/affect Skin Exam: jaundice, pale SpO2 Interpretation: normal SpO2: 100 O2 Delivery: Room Air Ordered Tests: Medication Summary Generic Name Dose Route Start Last Admin Trade Name Filibertoq PRN Reason Stop Dose Admin Aspirin 81 mg 06/02/22 12:00 06/02/22 12:17 Aspirin 81 Mg Tablet.Ec PO 07/02/22 11:59 81 mg DAILY SIXTO Administration Sodium Chloride 500 mls @ 50 mls/hr 06/03/22 08:30 Sodium Chloride 0.9% 500 Ml IV 06/03/22 18:29 .Q10H SIXTO Lactulose 30 gm 06/02/22 13:00 06/02/22 20:53 Lactulose 20 Gm/30 Ml Udcup PO 07/02/22 12:59 30 gm QID SIXTO Administration Miscellaneous Information 1 each 06/02/22 11:45 Medication Intervention 1 Each Each 07/02/22 11:44 .RN TO CHECK SIXTO Morphine Sulfate 2 mg 06/02/22 00:07 Morphine Sulfate 2 Mg/Ml Inj IV 06/07/22 00:06 Q4H PRN PRN PAIN Ondansetron HCl 4 mg 06/02/22 00:07 Ondansetron Hcl 4 Mg/2 Ml Vial IV 07/02/22 00:06 Q6H PRN PRN NAUSEA/VOMITING Pantoprazole Sodium 40 mg 06/02/22 12:00 06/02/22 20:55 Protonix (Pantoprazole) 40 Mg Tablet PO 07/02/22 11:59 40 mg BID SIXTO Administration Simvastatin 10 mg 06/02/22 22:00 06/02/22 20:55 Simvastatin 10 Mg Tablet PO 07/02/22 21:59 10 mg HS SIXTO Administration Spironolactone 25 mg 06/02/22 12:00 06/02/22 12:17 Spironolactone 25 Mg Tablet PO 07/02/22 11:59 25 mg DAILY SIXTO Administration Discontinued Medications Generic Name Dose Route Start Last Admin Trade Name Tracie PRN Reason Stop Dose Admin Albuterol/Ipratropium 3 ml 06/02/22 01:00 06/02/22 05:03 Ipratropium/Albuterol Sulfate 3 Ml Ampul.Neb IH 07/02/22 00:59 Not Given Q6HRT SIXTO Sodium Chloride Confirm 06/02/22 00:33 Sodium Chloride 0.9% 1000 Ml Administered 06/02/22 00:34 Dose 1,000 mls @ ud .ROUTE .STK-MED ONE Pantoprazole Sodium 40 mg 06/02/22 10:00 06/02/22 12:28 Pantoprazole 40 Mg Vial IV 07/02/22 09:59 Not Given Q24H10 [facility] Lab/Rad Data: Laboratory Result Diagrams 06/01/22 19:50 06/01/22 19:50 Laboratory Results 06/01/22 06/01/22 06/01/22 Range/Units 20:50 20:45 19:50 WBC (4.0-10.5) x10^3/uL RBC (4.1-5.6) x10^6/uL Hgb (12.5-18.0) g/dL Hct (42-50) % MCV (78-100) fL MCH (26-32) pg MCHC (32-36) g/dL RDW (11.5-14.0) % Plt Count (150-450) x10^3/uL MPV (7.5-11.0) fL Gran % (36.0-66.0) % Immature Gran % (Auto) (0.00-0.4) % Nucleat RBC Rel Count (0.00-0.1) % Eos # (Auto) (0-0.5) x10^3/uL Immature Gran # (Auto) (0.00-0.03) x10^3u/L Absolute Lymphs (auto) (1.0-4.6) x10^3/uL Absolute Monos (auto) (0.0-1.3) x10^3/uL Absolute Nucleated RBC (0.00-0.01) x10^3u/L Lymphocytes % (24.0-44.0) % Monocytes % (0.0-12.0) % Eosinophils % (0.00-5.0) % Basophils % (0.0-0.4) % Absolute Granulocytes (1.4-6.9) x10^3/uL Basophils # (0-0.4) x10^3/uL PT (9.4-12.5) SECONDS INR (0.8-3.0) Sodium (137-145) mmol/L Potassium (3.5-5.1) mmol/L Chloride (98-107) mmol/L Carbon Dioxide (22-30) mmol/L Anion Gap (5-15) MEQ/L BUN (9-20) mg/dL Creatinine (0.66-1.25) mg/dL Estimated GFR ML/MIN Glucose (74-106) mg/dL Calcium (8.4-10.2) mg/dL Total Bilirubin (0.2-1.3) mg/dL AST (17-59) U/L ALT (0-50) U/L Alkaline Phosphatase (38-126) U/L NT-Pro-B Natriuret Pep 198 (0-900) pg/mL Serum Total Protein (6.3-8.2) g/dL Albumin (3.5-5.0) g/dL Urinalys Dipstick Clnc Urine Color (YELLOW) Urine Appearance (CLEAR) Urine pH (5-6) Ur Specific [place] (1.005-1.025) POC Urine Protein Conf (Negative) Urine Ketones (NEGATIVE) Urine Nitrite (NEGATIVE) Urine Bilirubin (NEGATIVE) Urine Urobilinogen (0-1) mg/dL Urine Leukocytes (NEGATIVE) Urine WBC (Auto) (0-5) /HPF Urine RBC (Auto) (0-2) /HPF U Epithel Cells (Auto) (FEW) /HPF Urine Bacteria (Auto) (NEGATIVE) /HPF Urine RBC (0-5) Shayne/ul Ur Culture Indicated? Urine Glucose (NEGATIVE) mg/dL Influenza Type A Ag NEGATIVE (NEGATIVE) Influenza Type B Ag NEGATIVE (NEGATIVE) RSV (PCR) NEGATIVE (Negative) SARS-CoV-2 (PCR) NEGATIVE (NEGATIVE) Slides for Path Review ABO Group Rh Factor Antibody Screen (NEGATIVE) Crossmatch COMPATIBLE (COMPATIBLE) 06/01/22 06/01/22 06/01/22 Range/Units 19:50 19:50 19:50 WBC (4.0-10.5) x10^3/uL RBC (4.1-5.6) x10^6/uL Hgb (12.5-18.0) g/dL Hct (42-50) % MCV (78-100) fL MCH (26-32) pg MCHC (32-36) g/dL RDW (11.5-14.0) % Plt Count (150-450) x10^3/uL MPV (7.5-11.0) fL Gran % (36.0-66.0) % Immature Gran % (Auto) (0.00-0.4) % Nucleat RBC Rel Count (0.00-0.1) % Eos # (Auto) (0-0.5) x10^3/uL Immature Gran # (Auto) (0.00-0.03) x10^3u/L Absolute Lymphs (auto) (1.0-4.6) x10^3/uL Absolute Monos (auto) (0.0-1.3) x10^3/uL Absolute Nucleated RBC (0.00-0.01) x10^3u/L Lymphocytes % (24.0-44.0) % Monocytes % (0.0-12.0) % Eosinophils % (0.00-5.0) % Basophils % (0.0-0.4) % Absolute Granulocytes (1.4-6.9) x10^3/uL Basophils # (0-0.4) x10^3/uL PT 15.2 H (9.4-12.5) SECONDS INR 1.49 (0.8-3.0) Sodium (137-145) mmol/L Potassium (3.5-5.1) mmol/L Chloride (98-107) mmol/L Carbon Dioxide (22-30) mmol/L Anion Gap (5-15) MEQ/L BUN (9-20) mg/dL Creatinine (0.66-1.25) mg/dL Estimated GFR ML/MIN Glucose (74-106) mg/dL Calcium (8.4-10.2) mg/dL Total Bilirubin (0.2-1.3) mg/dL AST (17-59) U/L ALT (0-50) U/L Alkaline Phosphatase (38-126) U/L NT-Pro-B Natriuret Pep (0-900) pg/mL Serum Total Protein (6.3-8.2) g/dL Albumin (3.5-5.0) g/dL Urinalys Dipstick Clnc Urine Color (YELLOW) Urine Appearance (CLEAR) Urine pH (5-6) Ur Specific [place] (1.005-1.025) POC Urine Protein Conf (Negative) Urine Ketones (NEGATIVE) Urine Nitrite (NEGATIVE) Urine Bilirubin (NEGATIVE) Urine Urobilinogen (0-1) mg/dL Urine Leukocytes (NEGATIVE) Urine WBC (Auto) (0-5) /HPF Urine RBC (Auto) (0-2) /HPF U Epithel Cells (Auto) (FEW) /HPF Urine Bacteria (Auto) (NEGATIVE) /HPF Urine RBC (0-5) Shayne/ul Ur Culture Indicated? Urine Glucose (NEGATIVE) mg/dL Influenza Type A Ag (NEGATIVE) Influenza Type B Ag (NEGATIVE) RSV (PCR) (Negative) SARS-CoV-2 (PCR) (NEGATIVE) Slides for Path Review ABO Group A Rh Factor POSITIVE Antibody Screen NEGATIVE (NEGATIVE) Crossmatch COMPATIBLE (COMPATIBLE) 06/01/22 06/01/22 06/01/22 Range/Units 19:50 19:50 00:40 WBC 3.3 L (4.0-10.5) x10^3/uL RBC 2.50 L (4.1-5.6) x10^6/uL Hgb 6.5 L* (12.5-18.0) g/dL Hct 22.3 L (42-50) % MCV 89.2 (78-100) fL MCH 26.0 (26-32) pg MCHC 29.1 L (32-36) g/dL RDW 20.2 H (11.5-14.0) % Plt Count 73 L (150-450) x10^3/uL MPV 9.8 (7.5-11.0) fL Gran % 52.0 (36.0-66.0) % Immature Gran % (Auto) 0.3 (0.00-0.4) % Nucleat RBC Rel Count 0.0 (0.00-0.1) % Eos # (Auto) 0.22 (0-0.5) x10^3/uL Immature Gran # (Auto) 0.01 (0.00-0.03) x10^3u/L Absolute Lymphs (auto) 0.80 L (1.0-4.6) x10^3/uL Absolute Monos (auto) 0.56 (0.0-1.3) x10^3/uL Absolute Nucleated RBC 0.00 (0.00-0.01) x10^3u/L Lymphocytes % 24.0 (24.0-44.0) % Monocytes % 16.8 H (0.0-12.0) % Eosinophils % 6.6 H (0.00-5.0) % Basophils % 0.3 (0.0-0.4) % Absolute Granulocytes 1.73 (1.4-6.9) x10^3/uL Basophils # 0.01 (0-0.4) x10^3/uL PT (9.4-12.5) SECONDS INR (0.8-3.0) Sodium 134 L (137-145) mmol/L Potassium 3.8 (3.5-5.1) mmol/L Chloride 104 (98-107) mmol/L Carbon Dioxide 26 (22-30) mmol/L Anion Gap 7.6 (5-15) MEQ/L BUN 6 L (9-20) mg/dL Creatinine 0.77 (0.66-1.25) mg/dL Estimated GFR > 60.0 ML/MIN Glucose 143 H (74-106) mg/dL Calcium 8.2 L (8.4-10.2) mg/dL Total Bilirubin 1.90 H (0.2-1.3) mg/dL AST 45 (17-59) U/L ALT 25 (0-50) U/L Alkaline Phosphatase 185 H (38-126) U/L NT-Pro-B Natriuret Pep (0-900) pg/mL Serum Total Protein 7.2 (6.3-8.2) g/dL Albumin 2.7 L (3.5-5.0) g/dL Urinalys Dipstick Clnc MAIN LAB Urine Color YELLOW (YELLOW) Urine Appearance CLEAR (CLEAR) Urine pH 7.0 (5-6) Ur Specific [place] 1.020 (1.005-1.025) POC Urine Protein Conf NEGATIVE (Negative) Urine Ketones NEGATIVE (NEGATIVE) Urine Nitrite NEGATIVE (NEGATIVE) Urine Bilirubin NEGATIVE (NEGATIVE) Urine Urobilinogen 0.2 (0-1) mg/dL Urine Leukocytes NEGATIVE (NEGATIVE) Urine WBC (Auto) NONE (0-5) /HPF Urine RBC (Auto) NONE (0-2) /HPF U Epithel Cells (Auto) NONE (FEW) /HPF Urine Bacteria (Auto) NONE (NEGATIVE) /HPF Urine RBC NEGATIVE (0-5) Shayne/ul Ur Culture Indicated? NO Urine Glucose 100 A (NEGATIVE) mg/dL Influenza Type A Ag (NEGATIVE) Influenza Type B Ag (NEGATIVE) RSV (PCR) (Negative) SARS-CoV-2 (PCR) (NEGATIVE) Slides for Path Review YES ABO Group Rh Factor Antibody Screen (NEGATIVE) Crossmatch (COMPATIBLE) - Progress Progress: unchanged, re-examined Progress Note: 06/01/22 21:24 72-year-old with history of nonalcoholic steatotic hepatitis/cirrhosis on transplant list at on lactulose 4 times a day, chronic anemia needing multiple transfusions in the past presented in the ER after he was told by [facility] that his hemoglobin was low on a blood work done earlier today. It was 6.4. His baseline is around 8. Patient feels a little more fatigued and tired than usual. Denies any chest pain. No hematemesis or hematochezia/melena. Hemoglobin recheck is 6.5. INR is normal. Discussed with patient about risk and benefits of transfusion and he wants to go ahead with transfusion. Type and crossmatch 2 units, will transfuse 1 unit tonight and 1 tomorrow. I have discussed with Dr. Moraes, reviewed history, work-up and agreed with plan of transfusion 1 overnight and 1 tomorrow. Patient is being admitted. Discussed with : Artie Will see patient in: hospital (observation) Counseled pt/family regarding: lab results, diagnosis, need for follow-up - Departure Departure Disposition: Observation Clinical Impression: Symptomatic anemia Condition: Good Critical Care Time: No
[2022-06-01 21:33] LABS: INFLUENZA A NEGATIVE (NEGATIVE); INFLUENZA B NEGATIVE (NEGATIVE); RESPIRATORY SYNCTIAL VIRUS NEGATIVE (Negative); SARS-CoV-2 Xpert Express NEGATIVE (NEGATIVE)
[2022-06-01 21:47] LABS: ABO TYPING A; RH TYPING POSITIVE
[2022-06-01 21:48] LABS: Antibody Screen NEGATIVE (NEGATIVE)
[2022-06-01 21:52] LABS: CROSS MATCH (PRBC) COMPATIBLE (COMPATIBLE)
[2022-06-02] MEDS ORDERED: MORPHINE SULFATE 2 MG INJ IV PRN (00:07)
[2022-06-02] MEDS ORDERED: Zofran 4 MG/2 ML VIAL IV PRN (00:07)
[2022-06-02 00:32] LABS: Slide Review 1 YES
[2022-06-02] MEDS ORDERED: Sodium Chloride 0.9% 1000 ML 1,000 ML ONE (00:33)
[2022-06-02] MEDS ORDERED: DUONEB 0.5-3 MG/3 ml Neb IH SCH (01:00)
[2022-06-02 01:11] LABS: Appearance CLEAR (CLEAR); Bilirubin NEGATIVE (NEGATIVE); Glucose 100 mg/dL (NEGATIVE); Ketones NEGATIVE (NEGATIVE)
[2022-06-02 01:12] LABS: Dipstick done @ ? MAIN LAB; Nitrite NEGATIVE (NEGATIVE); Protein,Urine Dip NEGATIVE (Negative); RBC NEGATIVE Ery/ul (0-5); Urobilinogen 0.2 mg/dL (0-1)
[2022-06-02 01:31] LABS: Urine Cultured Indicated? NO
[2022-06-02 05:37] LABS: Absolute Neutrophil Ct (ANC) 1.69 x10^3/uL (1.4-6.9); Basophil (Absolute #) 0.02 x10^3/uL (0-0.4); Eosinophil % 7.5 % (0.00-5.0); Eosinophil (Absolute #) 0.24 x10^3/uL (0-0.5); Hematocrit 23.3 % (42-50); Hemoglobin 7.1 g/dL (12.5-18.0); Lymphocyte (Absolute #) 0.71 x10^3/uL (1.0-4.6); Mean Cell Volume 86.9 fL (78-100); Mean Corpuscular Hemoglobin 26.5 pg (26-32); Mean Corpuscular Hgb Concent. 30.5 g/dL (32-36); Mean Platelet Volume 10.8 fL (7.5-11.0); Monocyte (Absolute #) 0.55 x10^3/uL (0.0-1.3); Monocytes % 17.1 % (0.0-12.0); Neutrophil % 52.5 % (36.0-66.0); Platelet Count 63 x10^3/uL (150-450); Red Blood Count 2.68 x10^6/uL (4.1-5.6); Red Cell Distribution Width 19.2 % (11.5-14.0); White Blood Count 3.2 x10^3/uL (4.0-10.5)
[2022-06-02 06:44] LABS: ALBUMIN 2.2 g/dL (3.5-5.0); ALKALINE PHOSPHATASE 177 U/L (38-126); ANION GAP 6.5 MEQ/L (5-15); BLOOD UREA NITROGEN 6 mg/dL (9-20); CHLORIDE 104 mmol/L (98-107); Calcium 8.1 mg/dL (8.4-10.2); Carbon Dioxide 27 mmol/L (22-30); Creatinine 1 0.82 mg/dL (0.66-1.25); EST GLOMERULAR FILTRATION RATE > 60.0 ML/MIN; Glucose 143 mg/dL (74-106); SGOT/AST 40 U/L (17-59); SGPT/ALT 22 U/L (0-50); SODIUM 134 mmol/L (137-145); Total Protein 6.2 g/dL (6.3-8.2)
[2022-06-02 07:18] LABS: Slide Review 1 YES
[2022-06-02] MEDS ORDERED: PROTONIX 40 MG IV IV SCH (10:00)
[2022-06-02] MEDS ORDERED: MEDICATION INTERVENTION MC SCH (11:45)
--- NOTE | 2022-06-02 12:04 | PCM.SSS ---
History of Present Illness - Chief Complaint Chief Complaint: Symptomatic anemia History of Present Illness: [place] a 72 [facility] [place] [facility] [place] [facility]), CAD, HLD, DM II, GERD< and HTN with chronic anemia who was admitted through ER for blood transfusion. He got labs at the [facility], was found to have Hgb of 6.4 and told to come to ER to confirm. Repeat CBC showed Hgb 6.5 so he was admitted for transfusion of 2 units PRBC. As yet, only 1 unit has been transfused. Pt has hx multiple blood transfusions. He was feeling a little "groggy" at home but otherwise fine. yaneth po fine. Denies melena or hematochezia. He has been SOB x 2d but thought that was due to the weather. - Review of Systems Constitutional: Fatigue Respiratory: Short Of Breath Abdominal/Gastrointestinal: Diarrhea (chronic, due to lactulose QID) All Other Systems: Reviewed and Negative Medications & Allergies Home Medications: Home Medication List Aspirin EC 81 mg [Ecotrin 81 mg] 81 mg PO DAILY 06/02/22 [History Confirmed 06/02/22] Atorvastatin Calcium [Lipitor] 10 mg PO HS 06/02/22 [History Confirmed 06/02/22] Calcium Carbonate/Vitamin D3 [Calcium 600 mg-D3 20 Mcg Tab] 1 tab PO DAILY 06/02/22 [History Confirmed 06/02/22] Folic Acid 1 mg [Folate 1 mg] 2 mg PO DAILY 06/02/22 [History Confirmed 06/02/22] Lactulose 45 ml PO QID 06/02/22 [History Confirmed 06/02/22] PANTOPRAZOLE 40 mg Tablet [Protonix 40MG Tablet] 40 mg PO BID 06/02/22 [History Confirmed 06/02/22] Rifaximin [Xifaxan] 550 mg PO BID 06/02/22 [History Confirmed 06/02/22] Spironolactone 25 mg [Aldactone 25 MG] 25 mg PO DAILY 06/02/22 [History Confirmed 06/02/22] Allergies/Adverse Reactions: Allergies Allergy/AdvReac Type Severity Reaction Status Date / Time No Known Drug Allergies Allergy Verified 06/02/22 01:02 - Past Medical History Past Medical History: Yes Neurological History: No Pertinent History Cardiac History: Coronary Artery Disease, High Cholesterol, Hypertension Respiratory History: No Pertinent History Endocrine Medical History: Diabetes Type II GI Medical History: GERD History: No Pertinent History Pyscho-Social History: No Pertinent History Male Reproductive Disorders: No Pertinent History Comment: liver failure, waiting for transplant - Past Surgical History Past Surgical History: Yes Neuro Surgical History: No Pertinent History Cardiac History: Cardiac Catheterization, Cardiac Stent Respiratory Surgery: No Pertinent History GI Surgical History: Cholecystectomy, Other Genitourinary Surgical Hx: No Pertinent History Musculskeletal Surgical Hx: No Pertinent History Male Surgical History: No Pertinent History Other Surgical History: liver stent - Social History Smoking Status: Former smoker How long have you smoked: 25 years Exposure to second hand smoke: No Alcohol: None Drug Use: none Significant Family History: no pertinent family hx - Physical Exam Vital Signs: Vital Signs - 24 hr Temp Pulse Resp BP Pulse Ox 06/02/22 07:42 98.0 F 93 H 17 125/61 97 06/02/22 04:00 99.5 F 88 16 129/60 98 06/02/22 00:52 98.2 F 95 H 16 132/68 97 06/01/22 23:00 90 18 122/60 98 06/01/22 22:00 90 122/61 98 06/01/22 21:27 100 06/01/22 21:00 86 131/61 99 06/01/22 20:00 84 137/80 100 06/01/22 19:20 97.6 F 89 20 145/73 100 General Appearance: no apparent distress, alert Neurologic Exam: oriented x 3, cooperative Eye Exam: eyes nml inspection Ears, Nose, Throat Exam: moist mucous membranes Neck Exam: normal inspection, non-tender, No lymphadenopathy, No subcutaneous emphysema, No thyromegaly Respiratory Exam: normal breath sounds, lungs clear, No crackles/rales, No rhonchi, No wheezing Cardiovascular Exam: regular rate/rhythm, normal heart sounds, murmur (1/ sys murmur at lower L sternal border) Gastrointestinal/Abdomen Exam: soft, normal bowel sounds, No tenderness, No d istention, No mass, No guarding, No rebound Back Exam: normal inspection, No rash Extremity Exam: other (linear approx 8 cm scab on R anterior tibia), No pedal edema, No swelling Skin Exam: normal color, warm, dry, No rash Results - Labs Lab/Micro Results: Lab Results-Last 24 Hours 06/01/22 06/01/22 06/01/22 Range/Units 00:40 19:50 19:50 WBC 3.3 L (4.0-10.5) x10^3/uL RBC 2.50 L (4.1-5.6) x10^6/uL Hgb 6.5 L* (12.5-18.0) g/dL Hct 22.3 L (42-50) % MCV 89.2 (78-100) fL MCH 26.0 (26-32) pg MCHC 29.1 L (32-36) g/dL RDW 20.2 H (11.5-14.0) % Plt Count 73 L (150-450) x10^3/uL MPV 9.8 (7.5-11.0) fL Gran % 52.0 (36.0-66.0) % Immature Gran % (Auto) 0.3 (0.00-0.4) % Nucleat RBC Rel Count 0.0 (0.00-0.1) % Eos # (Auto) 0.22 (0-0.5) x10^3/uL Immature Gran # (Auto) 0.01 (0.00-0.03) x10^3u/L Absolute Lymphs (auto) 0.80 L (1.0-4.6) x10^3/uL Absolute Monos (auto) 0.56 (0.0-1.3) x10^3/uL Absolute Nucleated RBC 0.00 (0.00-0.01) x10^3u/L Lymphocytes % 24.0 (24.0-44.0) % Monocytes % 16.8 H (0.0-12.0) % Eosinophils % 6.6 H (0.00-5.0) % Basophils % 0.3 (0.0-0.4) % Absolute Granulocytes 1.73 (1.4-6.9) x10^3/uL Basophils # 0.01 (0-0.4) x10^3/uL PT (9.4-12.5) SECONDS INR (0.8-3.0) Sodium 134 L (137-145) mmol/L Potassium 3.8 (3.5-5.1) mmol/L Chloride 104 (98-107) mmol/L Carbon Dioxide 26 (22-30) mmol/L Anion Gap 7.6 (5-15) MEQ/L BUN 6 L (9-20) mg/dL Creatinine 0.77 (0.66-1.25) mg/dL Estimated GFR > 60.0 ML/MIN Glucose 143 H (74-106) mg/dL Calcium 8.2 L (8.4-10.2) mg/dL Total Bilirubin 1.90 H (0.2-1.3) mg/dL AST 45 (17-59) U/L ALT 25 (0-50) U/L Alkaline Phosphatase 185 H (38-126) U/L NT-Pro-B Natriuret Pep (0-900) pg/mL Serum Total Protein 7.2 (6.3-8.2) g/dL Albumin 2.7 L (3.5-5.0) g/dL Urinalys Dipstick Clnc MAIN LAB Urine Color YELLOW (YELLOW) Urine Appearance CLEAR (CLEAR) Urine pH 7.0 (5-6) Ur Specific [place] 1.020 (1.005-1.025) POC Urine Protein Conf NEGATIVE (Negative) Urine Ketones NEGATIVE (NEGATIVE) Urine Nitrite NEGATIVE (NEGATIVE) Urine Bilirubin NEGATIVE (NEGATIVE) Urine Urobilinogen 0.2 (0-1) mg/dL Urine Leukocytes NEGATIVE (NEGATIVE) Urine WBC (Auto) NONE (0-5) /HPF Urine RBC (Auto) NONE (0-2) /HPF U Epithel Cells (Auto) NONE (FEW) /HPF Urine Bacteria (Auto) NONE (NEGATIVE) /HPF Urine RBC NEGATIVE (0-5) Shayne/ul Ur Culture Indicated? NO Urine Glucose 100 A (NEGATIVE) mg/dL Influenza Type A Ag (NEGATIVE) Influenza Type B Ag (NEGATIVE) RSV (PCR) (Negative) SARS-CoV-2 (PCR) (NEGATIVE) Slides for Path Review YES ABO Group Rh Factor Antibody Screen (NEGATIVE) Crossmatch (COMPATIBLE) 06/01/22 06/01/22 06/01/22 Range/Units 19:50 19:50 19:50 WBC (4.0-10.5) x10^3/uL RBC (4.1-5.6) x10^6/uL Hgb (12.5-18.0) g/dL Hct (42-50) % MCV (78-100) fL MCH (26-32) pg MCHC (32-36) g/dL RDW (11.5-14.0) % Plt Count (150-450) x10^3/uL MPV (7.5-11.0) fL Gran % (36.0-66.0) % Immature Gran % (Auto) (0.00-0.4) % Nucleat RBC Rel Count (0.00-0.1) % Eos # (Auto) (0-0.5) x10^3/uL Immature Gran # (Auto) (0.00-0.03) x10^3u/L Absolute Lymphs (auto) (1.0-4.6) x10^3/uL Absolute Monos (auto) (0.0-1.3) x10^3/uL Absolute Nucleated RBC (0.00-0.01) x10^3u/L Lymphocytes % (24.0-44.0) % Monocytes % (0.0-12.0) % Eosinophils % (0.00-5.0) % Basophils % (0.0-0.4) % Absolute Granulocytes (1.4-6.9) x10^3/uL Basophils # (0-0.4) x10^3/uL PT 15.2 H (9.4-12.5) SECONDS INR 1.49 (0.8-3.0) Sodium (137-145) mmol/L Potassium (3.5-5.1) mmol/L Chloride (98-107) mmol/L Carbon Dioxide (22-30) mmol/L Anion Gap (5-15) MEQ/L BUN (9-20) mg/dL Creatinine (0.66-1.25) mg/dL Estimated GFR ML/MIN Glucose (74-106) mg/dL Calcium (8.4-10.2) mg/dL Total Bilirubin (0.2-1.3) mg/dL AST (17-59) U/L ALT (0-50) U/L Alkaline Phosphatase (38-126) U/L NT-Pro-B Natriuret Pep (0-900) pg/mL Serum Total Protein (6.3-8.2) g/dL Albumin (3.5-5.0) g/dL Urinalys Dipstick Clnc Urine Color (YELLOW) Urine Appearance (CLEAR) Urine pH (5-6) Ur Specific [place] (1.005-1.025) POC Urine Protein Conf (Negative) Urine Ketones (NEGATIVE) Urine Nitrite (NEGATIVE) Urine Bilirubin (NEGATIVE) Urine Urobilinogen (0-1) mg/dL Urine Leukocytes (NEGATIVE) Urine WBC (Auto) (0-5) /HPF Urine RBC (Auto) (0-2) /HPF U Epithel Cells (Auto) (FEW) /HPF Urine Bacteria (Auto) (NEGATIVE) /HPF Urine RBC (0-5) Shayne/ul Ur Culture Indicated? Urine Glucose (NEGATIVE) mg/dL Influenza Type A Ag (NEGATIVE) Influenza Type B Ag (NEGATIVE) RSV (PCR) (Negative) SARS-CoV-2 (PCR) (NEGATIVE) Slides for Path Review ABO Group A Rh Factor POSITIVE Antibody Screen NEGATIVE (NEGATIVE) Crossmatch COMPATIBLE (COMPATIBLE) 06/01/22 06/01/22 06/01/22 Range/Units 19:50 20:45 20:50 WBC (4.0-10.5) x10^3/uL RBC (4.1-5.6) x10^6/uL Hgb (12.5-18.0) g/dL Hct (42-50) % MCV (78-100) fL MCH (26-32) pg MCHC (32-36) g/dL RDW (11.5-14.0) % Plt Count (150-450) x10^3/uL MPV (7.5-11.0) fL Gran % (36.0-66.0) % Immature Gran % (Auto) (0.00-0.4) % Nucleat RBC Rel Count (0.00-0.1) % Eos # (Auto) (0-0.5) x10^3/uL Immature Gran # (Auto) (0.00-0.03) x10^3u/L Absolute Lymphs (auto) (1.0-4.6) x10^3/uL Absolute Monos (auto) (0.0-1.3) x10^3/uL Absolute Nucleated RBC (0.00-0.01) x10^3u/L Lymphocytes % (24.0-44.0) % Monocytes % (0.0-12.0) % Eosinophils % (0.00-5.0) % Basophils % (0.0-0.4) % Absolute Granulocytes (1.4-6.9) x10^3/uL Basophils # (0-0.4) x10^3/uL PT (9.4-12.5) SECONDS INR (0.8-3.0) Sodium (137-145) mmol/L Potassium (3.5-5.1) mmol/L Chloride (98-107) mmol/L Carbon Dioxide (22-30) mmol/L Anion Gap (5-15) MEQ/L BUN (9-20) mg/dL Creatinine (0.66-1.25) mg/dL Estimated GFR ML/MIN Glucose (74-106) mg/dL Calcium (8.4-10.2) mg/dL Total Bilirubin (0.2-1.3) mg/dL AST (17-59) U/L ALT (0-50) U/L Alkaline Phosphatase (38-126) U/L NT-Pro-B Natriuret Pep 198 (0-900) pg/mL Serum Total Protein (6.3-8.2) g/dL Albumin (3.5-5.0) g/dL Urinalys Dipstick Clnc Urine Color (YELLOW) Urine Appearance (CLEAR) Urine pH (5-6) Ur Specific [place] (1.005-1.025) POC Urine Protein Conf (Negative) Urine Ketones (NEGATIVE) Urine Nitrite (NEGATIVE) Urine Bilirubin (NEGATIVE) Urine Urobilinogen (0-1) mg/dL Urine Leukocytes (NEGATIVE) Urine WBC (Auto) (0-5) /HPF Urine RBC (Auto) (0-2) /HPF U Epithel Cells (Auto) (FEW) /HPF Urine Bacteria (Auto) (NEGATIVE) /HPF Urine RBC (0-5) Shayne/ul Ur Culture Indicated? Urine Glucose (NEGATIVE) mg/dL Influenza Type A Ag NEGATIVE (NEGATIVE) Influenza Type B Ag NEGATIVE (NEGATIVE) RSV (PCR) NEGATIVE (Negative) SARS-CoV-2 (PCR) NEGATIVE (NEGATIVE) Slides for Path Review ABO Group Rh Factor Antibody Screen (NEGATIVE) Crossmatch COMPATIBLE (COMPATIBLE) 06/02/22 06/02/22 Range/Units 04:54 04:54 WBC 3.2 L (4.0-10.5) x10^3/uL RBC 2.68 L (4.1-5.6) x10^6/uL Hgb 7.1 L (12.5-18.0) g/dL Hct 23.3 L (42-50) % MCV 86.9 (78-100) fL MCH 26.5 (26-32) pg MCHC 30.5 L (32-36) g/dL RDW 19.2 H (11.5-14.0) % Plt Count 63 L (150-450) x10^3/uL MPV 10.8 (7.5-11.0) fL Gran % 52.5 (36.0-66.0) % Immature Gran % (Auto) 0.3 (0.00-0.4) % Nucleat RBC Rel Count 0.0 (0.00-0.1) % Eos # (Auto) 0.24 (0-0.5) x10^3/uL Immature Gran # (Auto) 0.01 (0.00-0.03) x10^3u/L Absolute Lymphs (auto) 0.71 L (1.0-4.6) x10^3/uL Absolute Monos (auto) 0.55 (0.0-1.3) x10^3/uL Absolute Nucleated RBC 0.00 (0.00-0.01) x10^3u/L Lymphocytes % 22.0 L (24.0-44.0) % Monocytes % 17.1 H (0.0-12.0) % Eosinophils % 7.5 H (0.00-5.0) % Basophils % 0.6 (0.0-0.4) % Absolute Granulocytes 1.69 (1.4-6.9) x10^3/uL Basophils # 0.02 (0-0.4) x10^3/uL PT (9.4-12.5) SECONDS INR (0.8-3.0) Sodium 134 L (137-145) mmol/L Potassium 4.0 (3.5-5.1) mmol/L Chloride 104 (98-107) mmol/L Carbon Dioxide 27 (22-30) mmol/L Anion Gap 6.5 (5-15) MEQ/L BUN 6 L (9-20) mg/dL Creatinine 0.82 (0.66-1.25) mg/dL Estimated GFR > 60.0 ML/MIN Glucose 143 H (74-106) mg/dL Calcium 8.1 L (8.4-10.2) mg/dL Total Bilirubin 2.60 H (0.2-1.3) mg/dL AST 40 (17-59) U/L ALT 22 (0-50) U/L Alkaline Phosphatase 177 H (38-126) U/L NT-Pro-B Natriuret Pep (0-900) pg/mL Serum Total Protein 6.2 L (6.3-8.2) g/dL Albumin 2.2 L (3.5-5.0) g/dL Urinalys Dipstick Clnc Urine Color (YELLOW) Urine Appearance (CLEAR) Urine pH (5-6) Ur Specific [place] (1.005-1.025) POC Urine Protein Conf (Negative) Urine Ketones (NEGATIVE) Urine Nitrite (NEGATIVE) Urine Bilirubin (NEGATIVE) Urine Urobilinogen (0-1) mg/dL Urine Leukocytes (NEGATIVE) Urine WBC (Auto) (0-5) /HPF Urine RBC (Auto) (0-2) /HPF U Epithel Cells (Auto) (FEW) /HPF Urine Bacteria (Auto) (NEGATIVE) /HPF Urine RBC (0-5) Shayne/ul Ur Culture Indicated? Urine Glucose (NEGATIVE) mg/dL Influenza Type A Ag (NEGATIVE) Influenza Type B Ag (NEGATIVE) RSV (PCR) (Negative) SARS-CoV-2 (PCR) (NEGATIVE) Slides for Path Review YES ABO Group Rh Factor Antibody Screen (NEGATIVE) Crossmatch (COMPATIBLE) Assessment/Plan (1) Symptomatic anemia Current Visit: Yes Status: Acute Assessment & Plan: Will transfuse 2nd unit and if post hgb is 8 or more, will discharge to home today. Code(s): D64.9 - ANEMIA, UNSPECIFIED (2) GRIMES (nonalcoholic steatohepatitis) Current Visit: Yes Status: Chronic Code(s): K75.81 - NONALCOHOLIC STEATOHEPATITIS (GRIMES) (3) CAD (coronary artery disease) Current Visit: Yes Status: Chronic Qualifiers: Coronary Disease-Associated Artery/Lesion type: [place] artery [place] vs. transplanted heart: [place] heart Associated angina: without angina Qualified Code(s): I25.10 - Atherosclerotic heart disease of [place] coronary artery without angina pectoris Code(s): I25.10 - ATHSCL HEART DISEASE OF [place] CORONARY ARTERY W/O ANG PCTRS (4) Diabetes mellitus, type II Current Visit: Yes Status: Chronic (5) GERD (gastroesophageal reflux disease) Current Visit: Yes Status: Chronic Qualifiers: Esophagitis presence: esophagitis presence not specified Qualified Code(s): K21.9 - Gastro-esophageal reflux disease without esophagitis Code(s): K21.9 - GASTRO-ESOPHAGEAL REFLUX DISEASE WITHOUT ESOPHAGITIS (6) HTN (hypertension) Current Visit: Yes Status: Chronic Qualifiers: Hypertension type: primary hypertension Qualified Code(s): I10 - Essential (primary) hypertension Code(s): I10 - ESSENTIAL (PRIMARY) HYPERTENSION Hospital Summary - Hospital Course Hospital Course: Pt is 72 yo male pt of the [place] who was found to have hgb 6.4, sent to ER where Hgb was 6.5 and admitted for transfusion 2 units PRBC. After the 2nd unit is transfused, if hgb at least 8 he will be discharged at that time. - Vitals & Intake/Output Vital Signs: Vital Signs Temperature 98.0 F 06/02/22 07:42 Pulse Rate 93 H 06/02/22 07:42 Respiratory Rate 17 06/02/22 07:42 Blood Pressure 125/61 06/02/22 07:42 O2 Sat by Pulse Oximetry 97 06/02/22 07:42 Intake & Output: Intake & Output 05/30/22 05/31/22 06/01/22 06/02/22 11:59 11:59 11:59 11:59 Intake Total 120 Balance 120 Weight 70.3 kg - Lab Result Diagrams: 06/02/22 04:54 06/02/22 04:54 Lab Results-Last 24 Hrs: Lab Results-Last 24 Hours 06/01/22 06/01/22 06/01/22 Range/Units 00:40 19:50 19:50 WBC 3.3 L (4.0-10.5) x10^3/uL RBC 2.50 L (4.1-5.6) x10^6/uL Hgb 6.5 L* (12.5-18.0) g/dL Hct 22.3 L (42-50) % MCV 89.2 (78-100) fL MCH 26.0 (26-32) pg MCHC 29.1 L (32-36) g/dL RDW 20.2 H (11.5-14.0) % Plt Count 73 L (150-450) x10^3/uL MPV 9.8 (7.5-11.0) fL Gran % 52.0 (36.0-66.0) % Immature Gran % (Auto) 0.3 (0.00-0.4) % Nucleat RBC Rel Count 0.0 (0.00-0.1) % Eos # (Auto) 0.22 (0-0.5) x10^3/uL Immature Gran # (Auto) 0.01 (0.00-0.03) x10^3u/L Absolute Lymphs (auto) 0.80 L (1.0-4.6) x10^3/uL Absolute Monos (auto) 0.56 (0.0-1.3) x10^3/uL Absolute Nucleated RBC 0.00 (0.00-0.01) x10^3u/L Lymphocytes % 24.0 (24.0-44.0) % Monocytes % 16.8 H (0.0-12.0) % Eosinophils % 6.6 H (0.00-5.0) % Basophils % 0.3 (0.0-0.4) % Absolute Granulocytes 1.73 (1.4-6.9) x10^3/uL Basophils # 0.01 (0-0.4) x10^3/uL PT (9.4-12.5) SECONDS INR (0.8-3.0) Sodium 134 L (137-145) mmol/L Potassium 3.8 (3.5-5.1) mmol/L Chloride 104 (98-107) mmol/L Carbon Dioxide 26 (22-30) mmol/L Anion Gap 7.6 (5-15) MEQ/L BUN 6 L (9-20) mg/dL Creatinine 0.77 (0.66-1.25) mg/dL Estimated GFR > 60.0 ML/MIN Glucose 143 H (74-106) mg/dL Calcium 8.2 L (8.4-10.2) mg/dL Total Bilirubin 1.90 H (0.2-1.3) mg/dL AST 45 (17-59) U/L ALT 25 (0-50) U/L Alkaline Phosphatase 185 H (38-126) U/L NT-Pro-B Natriuret Pep (0-900) pg/mL Serum Total Protein 7.2 (6.3-8.2) g/dL Albumin 2.7 L (3.5-5.0) g/dL Urinalys Dipstick Clnc MAIN LAB Urine Color YELLOW (YELLOW) Urine Appearance CLEAR (CLEAR) Urine pH 7.0 (5-6) Ur Specific [place] 1.020 (1.005-1.025) POC Urine Protein Conf NEGATIVE (Negative) Urine Ketones NEGATIVE (NEGATIVE) Urine Nitrite NEGATIVE (NEGATIVE) Urine Bilirubin NEGATIVE (NEGATIVE) Urine Urobilinogen 0.2 (0-1) mg/dL Urine Leukocytes NEGATIVE (NEGATIVE) Urine WBC (Auto) NONE (0-5) /HPF Urine RBC (Auto) NONE (0-2) /HPF U Epithel Cells (Auto) NONE (FEW) /HPF Urine Bacteria (Auto) NONE (NEGATIVE) /HPF Urine RBC NEGATIVE (0-5) Shayne/ul Ur Culture Indicated? NO Urine Glucose 100 A (NEGATIVE) mg/dL Influenza Type A Ag (NEGATIVE) Influenza Type B Ag (NEGATIVE) RSV (PCR) (Negative) SARS-CoV-2 (PCR) (NEGATIVE) Slides for Path Review YES ABO Group Rh Factor Antibody Screen (NEGATIVE) Crossmatch (COMPATIBLE) 06/01/22 06/01/22 06/01/22 Range/Units 19:50 19:50 19:50 WBC (4.0-10.5) x10^3/uL RBC (4.1-5.6) x10^6/uL Hgb (12.5-18.0) g/dL Hct (42-50) % MCV (78-100) fL MCH (26-32) pg MCHC (32-36) g/dL RDW (11.5-14.0) % Plt Count (150-450) x10^3/uL MPV (7.5-11.0) fL Gran % (36.0-66.0) % Immature Gran % (Auto) (0.00-0.4) % Nucleat RBC Rel Count (0.00-0.1) % Eos # (Auto) (0-0.5) x10^3/uL Immature Gran # (Auto) (0.00-0.03) x10^3u/L Absolute Lymphs (auto) (1.0-4.6) x10^3/uL Absolute Monos (auto) (0.0-1.3) x10^3/uL Absolute Nucleated RBC (0.00-0.01) x10^3u/L Lymphocytes % (24.0-44.0) % Monocytes % (0.0-12.0) % Eosinophils % (0.00-5.0) % Basophils % (0.0-0.4) % Absolute Granulocytes (1.4-6.9) x10^3/uL Basophils # (0-0.4) x10^3/uL PT 15.2 H (9.4-12.5) SECONDS INR 1.49 (0.8-3.0) Sodium (137-145) mmol/L Potassium (3.5-5.1) mmol/L Chloride (98-107) mmol/L Carbon Dioxide (22-30) mmol/L Anion Gap (5-15) MEQ/L BUN (9-20) mg/dL Creatinine (0.66-1.25) mg/dL Estimated GFR ML/MIN Glucose (74-106) mg/dL Calcium (8.4-10.2) mg/dL Total Bilirubin (0.2-1.3) mg/dL AST (17-59) U/L ALT (0-50) U/L Alkaline Phosphatase (38-126) U/L NT-Pro-B Natriuret Pep (0-900) pg/mL Serum Total Protein (6.3-8.2) g/dL Albumin (3.5-5.0) g/dL Urinalys Dipstick Clnc Urine Color (YELLOW) Urine Appearance (CLEAR) Urine pH (5-6) Ur Specific [place] (1.005-1.025) POC Urine Protein Conf (Negative) Urine Ketones (NEGATIVE) Urine Nitrite (NEGATIVE) Urine Bilirubin (NEGATIVE) Urine Urobilinogen (0-1) mg/dL Urine Leukocytes (NEGATIVE) Urine WBC (Auto) (0-5) /HPF Urine RBC (Auto) (0-2) /HPF U Epithel Cells (Auto) (FEW) /HPF Urine Bacteria (Auto) (NEGATIVE) /HPF Urine RBC (0-5) Shayne/ul Ur Culture Indicated? Urine Glucose (NEGATIVE) mg/dL Influenza Type A Ag (NEGATIVE) Influenza Type B Ag (NEGATIVE) RSV (PCR) (Negative) SARS-CoV-2 (PCR) (NEGATIVE) Slides for Path Review ABO Group A Rh Factor POSITIVE Antibody Screen NEGATIVE (NEGATIVE) Crossmatch COMPATIBLE (COMPATIBLE) 06/01/22 06/01/22 06/01/22 Range/Units 19:50 20:45 20:50 WBC (4.0-10.5) x10^3/uL RBC (4.1-5.6) x10^6/uL Hgb (12.5-18.0) g/dL Hct (42-50) % MCV (78-100) fL MCH (26-32) pg MCHC (32-36) g/dL RDW (11.5-14.0) % Plt Count (150-450) x10^3/uL MPV (7.5-11.0) fL Gran % (36.0-66.0) % Immature Gran % (Auto) (0.00-0.4) % Nucleat RBC Rel Count (0.00-0.1) % Eos # (Auto) (0-0.5) x10^3/uL Immature Gran # (Auto) (0.00-0.03) x10^3u/L Absolute Lymphs (auto) (1.0-4.6) x10^3/uL Absolute Monos (auto) (0.0-1.3) x10^3/uL Absolute Nucleated RBC (0.00-0.01) x10^3u/L Lymphocytes % (24.0-44.0) % Monocytes % (0.0-12.0) % Eosinophils % (0.00-5.0) % Basophils % (0.0-0.4) % Absolute Granulocytes (1.4-6.9) x10^3/uL Basophils # (0-0.4) x10^3/uL PT (9.4-12.5) SECONDS INR (0.8-3.0) Sodium (137-145) mmol/L Potassium (3.5-5.1) mmol/L Chloride (98-107) mmol/L Carbon Dioxide (22-30) mmol/L Anion Gap (5-15) MEQ/L BUN (9-20) mg/dL Creatinine (0.66-1.25) mg/dL Estimated GFR ML/MIN Glucose (74-106) mg/dL Calcium (8.4-10.2) mg/dL Total Bilirubin (0.2-1.3) mg/dL AST (17-59) U/L ALT (0-50) U/L Alkaline Phosphatase (38-126) U/L NT-Pro-B Natriuret Pep 198 (0-900) pg/mL Serum Total Protein (6.3-8.2) g/dL Albumin (3.5-5.0) g/dL Urinalys Dipstick Clnc Urine Color (YELLOW) Urine Appearance (CLEAR) Urine pH (5-6) Ur Specific Davidson (1.005-1.025) POC Urine Protein Conf (Negative) Urine Ketones (NEGATIVE) Urine Nitrite (NEGATIVE) Urine Bilirubin (NEGATIVE) Urine Urobilinogen (0-1) mg/dL Urine Leukocytes (NEGATIVE) Urine WBC (Auto) (0-5) /HPF Urine RBC (Auto) (0-2) /HPF U Epithel Cells (Auto) (FEW) /HPF Urine Bacteria (Auto) (NEGATIVE) /HPF Urine RBC (0-5) Shayne/ul Ur Culture Indicated? Urine Glucose (NEGATIVE) mg/dL Influenza Type A Ag NEGATIVE (NEGATIVE) Influenza Type B Ag NEGATIVE (NEGATIVE) RSV (PCR) NEGATIVE (Negative) SARS-CoV-2 (PCR) NEGATIVE (NEGATIVE) Slides for Path Review ABO Group Rh Factor Antibody Screen (NEGATIVE) Crossmatch COMPATIBLE (COMPATIBLE) 06/02/22 06/02/22 Range/Units 04:54 04:54 WBC 3.2 L (4.0-10.5) x10^3/uL RBC 2.68 L (4.1-5.6) x10^6/uL Hgb 7.1 L (12.5-18.0) g/dL Hct 23.3 L (42-50) % MCV 86.9 (78-100) fL MCH 26.5 (26-32) pg MCHC 30.5 L (32-36) g/dL RDW 19.2 H (11.5-14.0) % Plt Count 63 L (150-450) x10^3/uL MPV 10.8 (7.5-11.0) fL Gran % 52.5 (36.0-66.0) % Immature Gran % (Auto) 0.3 (0.00-0.4) % Nucleat RBC Rel Count 0.0 (0.00-0.1) % Eos # (Auto) 0.24 (0-0.5) x10^3/uL Immature Gran # (Auto) 0.01 (0.00-0.03) x10^3u/L Absolute Lymphs (auto) 0.71 L (1.0-4.6) x10^3/uL Absolute Monos (auto) 0.55 (0.0-1.3) x10^3/uL Absolute Nucleated RBC 0.00 (0.00-0.01) x10^3u/L Lymphocytes % 22.0 L (24.0-44.0) % Monocytes % 17.1 H (0.0-12.0) % Eosinophils % 7.5 H (0.00-5.0) % Basophils % 0.6 (0.0-0.4) % Absolute Granulocytes 1.69 (1.4-6.9) x10^3/uL Basophils # 0.02 (0-0.4) x10^3/uL PT (9.4-12.5) SECONDS INR (0.8-3.0) Sodium 134 L (137-145) mmol/L Potassium 4.0 (3.5-5.1) mmol/L Chloride 104 (98-107) mmol/L Carbon Dioxide 27 (22-30) mmol/L Anion Gap 6.5 (5-15) MEQ/L BUN 6 L (9-20) mg/dL Creatinine 0.82 (0.66-1.25) mg/dL Estimated GFR > 60.0 ML/MIN Glucose 143 H (74-106) mg/dL Calcium 8.1 L (8.4-10.2) mg/dL Total Bilirubin 2.60 H (0.2-1.3) mg/dL AST 40 (17-59) U/L ALT 22 (0-50) U/L Alkaline Phosphatase 177 H (38-126) U/L NT-Pro-B Natriuret Pep (0-900) pg/mL Serum Total Protein 6.2 L (6.3-8.2) g/dL Albumin 2.2 L (3.5-5.0) g/dL Urinalys Dipstick Clnc Urine Color (YELLOW) Urine Appearance (CLEAR) Urine pH (5-6) Ur Specific Davidson (1.005-1.025) POC Urine Protein Conf (Negative) Urine Ketones (NEGATIVE) Urine Nitrite (NEGATIVE) Urine Bilirubin (NEGATIVE) Urine Urobilinogen (0-1) mg/dL Urine Leukocytes (NEGATIVE) Urine WBC (Auto) (0-5) /HPF Urine RBC (Auto) (0-2) /HPF U Epithel Cells (Auto) (FEW) /HPF Urine Bacteria (Auto) (NEGATIVE) /HPF Urine RBC (0-5) Shayne/ul Ur Culture Indicated? Urine Glucose (NEGATIVE) mg/dL Influenza Type A Ag (NEGATIVE) Influenza Type B Ag (NEGATIVE) RSV (PCR) (Negative) SARS-CoV-2 (PCR) (NEGATIVE) Slides for Path Review YES ABO Group Rh Factor Antibody Screen (NEGATIVE) Crossmatch (COMPATIBLE) - Discharge Disposition: Home, Self-Care Condition: Good Prescriptions: No Action Folic Acid 1 mg [Folate 1 mg] 2 mg PO DAILY Calcium Carbonate/Vitamin D3 [Calcium 600 mg-D3 20 Mcg Tab] 1 tab PO DAILY PANTOPRAZOLE 40 mg Tablet [Protonix 40MG Tablet] 40 mg PO BID Rifaximin [Xifaxan] 550 mg PO BID Spironolactone 25 mg [Aldactone 25 MG] 25 mg PO DAILY Aspirin EC 81 mg [Ecotrin 81 mg] 81 mg PO DAILY Atorvastatin Calcium [Lipitor] 10 mg PO HS Lactulose 45 ml PO QID Follow up with: GRACE BLOUNT NP [Primary Care Provider] -
[2022-06-02] MEDS: ECOTRIN 81 MG PO SCH (12:17)
[2022-06-02] MEDS: Aldactone 25 MG PO SCH (12:17)
[2022-06-02] MEDS: Protonix 40MG Tablet PO SCH ×2 (12:17→20:55)
[2022-06-02] MEDS: LACTULOSE 20 GM/30ML UD CUP PO SCH ×3 (12:17→20:53)
[2022-06-02] MEDS ORDERED: LACTULOSE 10 GM/15 ML PO SCH (13:00)
[2022-06-02] MEDS ORDERED: Enulose 10 GM/15 ML PO SCH (13:00)
[2022-06-02 19:29] LABS: Hematocrit 26.2 % (42-50); Hemoglobin 7.9 g/dL (12.5-18.0)
[2022-06-02] MEDS ORDERED: Zocor 10MG PO SCH (22:00)
[2022-06-02] MEDS ORDERED: NON-FORMULARY ITEM (Atorvastatin Calcium 10 MG Tablet) PO SCH (22:00)
[2022-06-02] MEDS ORDERED: NON-FORMULARY ITEM (Rifaximin [Xifaxan] 550 MG Tablet) PO SCH (22:00)
[2022-06-03 05:28] LABS: Absolute Neutrophil Ct (ANC) 2.17 x10^3/uL (1.4-6.9); Basophil (Absolute #) 0.01 x10^3/uL (0-0.4); Eosinophil (Absolute #) 0.22 x10^3/uL (0-0.5); Hematocrit 24.8 % (42-50); Hemoglobin 7.7 g/dL (12.5-18.0); Lymphocyte (Absolute #) 0.75 x10^3/uL (1.0-4.6); Lymphocytes % 20.4 % (24.0-44.0); Mean Cell Volume 84.6 fL (78-100); Mean Corpuscular Hemoglobin 26.3 pg (26-32); Mean Platelet Volume 10.1 fL (7.5-11.0); Monocyte (Absolute #) 0.51 x10^3/uL (0.0-1.3); Monocytes % 13.9 % (0.0-12.0); Neutrophil % 59.1 % (36.0-66.0); Platelet Count 59 x10^3/uL (150-450); Red Blood Count 2.93 x10^6/uL (4.1-5.6); Red Cell Distribution Width 19.3 % (11.5-14.0); White Blood Count 3.7 x10^3/uL (4.0-10.5)
[2022-06-03 05:55] LABS: ANION GAP 6.8 MEQ/L (5-15); BLOOD UREA NITROGEN 7 mg/dL (9-20); CHLORIDE 107 mmol/L (98-107); Calcium 7.9 mg/dL (8.4-10.2); Carbon Dioxide 23 mmol/L (22-30); Creatinine 1 0.68 mg/dL (0.66-1.25); EST GLOMERULAR FILTRATION RATE > 60.0 ML/MIN; Glucose 146 mg/dL (74-106); Potassium 3.8 mmol/L (3.5-5.1); SODIUM 133 mmol/L (137-145)
[2022-06-03 05:56] LABS: Slide Review 1 YES
[2022-06-03 08:11] VITALS: BP 129/62; PULSE 71
[2022-06-03] MEDS ORDERED: Sodium Chloride 0.9% 500 ML 500 ML IV SCH (08:30)
[2022-06-03 08:38] VITALS: O2SAT 100
[2022-06-03] MEDS: Protonix 40MG Tablet PO SCH (10:09)
[2022-06-03] MEDS: Aldactone 25 MG PO SCH (10:10)
[2022-06-03] MEDS: ECOTRIN 81 MG PO SCH (10:10)
[2022-06-03] MEDS: LACTULOSE 20 GM/30ML UD CUP PO SCH ×3 (10:10→18:16)
--- NOTE | 2022-06-03 13:00 | PCM.DS ---
Discharge Summary Date of Admission: 06/02/22 00:06 Admitting Physician: CHASE OCAMPO Primary Care Provider: GRACE BLOUNT NP Allergies Allergies No Known Drug Allergies Allergy (Verified 06/02/22 01:02) Hospital Summary - Hospital Course Hospital Course: is a 72 year old male pt of [place] [facility] with GRIMES (on transplant list), CAD, HLD, DM II, GERD< and HTN with chronic anemia who was admitted through ER for blood transfusion. He got labs at the [facility], was found to have Hgb of 6.4 and told to come to ER to confirm. Repeat CBC showed Hgb 6.5 so he was admitted for transfusion of 2 units PRBC. Pt has hx multiple blood transfusions. He was feeling a little "groggy" at home but otherwise fine. yaneth po fine. Denies melena or hematochezia. He has been SOB x 2d but thought that was due to the weather. Pt was supposed to d/c yesterday after 2nd unit but he ended up staying. This morning, hgb 7.7 so due to hx CAD, transfusing another unit today then he will discharge to home. - Vitals & Intake/Output Vital Signs: Vital Signs Temperature 98.1 F 06/03/22 08:00 Pulse Rate 71 06/03/22 08:00 Respiratory Rate 17 06/03/22 08:00 Blood Pressure 129/62 06/03/22 08:00 O2 Sat by Pulse Oximetry 100 06/03/22 08:37 Intake & Output: Intake & Output 06/01/22 06/02/22 06/03/22 06/04/22 11:59 11:59 11:59 11:59 Intake Total 120 1540 Balance 120 1540 Weight 70.3 kg 69.6 kg - Lab Result Diagrams: 06/03/22 05:15 06/03/22 05:15 Lab Results-Last 24 Hrs: Lab Results-Last 24 Hours 06/02/22 06/03/22 06/03/22 Range/Units 19:28 05:15 05:15 WBC 3.7 L (4.0-10.5) x10^3/uL RBC 2.93 L (4.1-5.6) x10^6/uL Hgb 7.9 L 7.7 L (12.5-18.0) g/dL Hct 26.2 L 24.8 L (42-50) % MCV 84.6 (78-100) fL MCH 26.3 (26-32) pg MCHC 31.0 L (32-36) g/dL RDW 19.3 H (11.5-14.0) % Plt Count 59 L (150-450) x10^3/uL MPV 10.1 (7.5-11.0) fL Gran % 59.1 (36.0-66.0) % Immature Gran % (Auto) 0.3 (0.00-0.4) % Nucleat RBC Rel Count 0.0 (0.00-0.1) % Eos # (Auto) 0.22 (0-0.5) x10^3/uL Immature Gran # (Auto) 0.01 (0.00-0.03) x10^3u/L Absolute Lymphs (auto) 0.75 L (1.0-4.6) x10^3/uL Absolute Monos (auto) 0.51 (0.0-1.3) x10^3/uL Absolute Nucleated RBC 0.00 (0.00-0.01) x10^3u/L Lymphocytes % 20.4 L (24.0-44.0) % Monocytes % 13.9 H (0.0-12.0) % Eosinophils % 6.0 H (0.00-5.0) % Basophils % 0.3 (0.0-0.4) % Absolute Granulocytes 2.17 (1.4-6.9) x10^3/uL Basophils # 0.01 (0-0.4) x10^3/uL Sodium 133 L (137-145) mmol/L Potassium 3.8 (3.5-5.1) mmol/L Chloride 107 (98-107) mmol/L Carbon Dioxide 23 (22-30) mmol/L Anion Gap 6.8 (5-15) MEQ/L BUN 7 L (9-20) mg/dL Creatinine 0.68 (0.66-1.25) mg/dL Estimated GFR > 60.0 ML/MIN Glucose 146 H (74-106) mg/dL Calcium 7.9 L (8.4-10.2) mg/dL Slides for Path Review YES Crossmatch (COMPATIBLE) 06/03/22 Range/Units Unknown WBC (4.0-10.5) x10^3/uL RBC (4.1-5.6) x10^6/uL Hgb (12.5-18.0) g/dL Hct (42-50) % MCV (78-100) fL MCH (26-32) pg MCHC (32-36) g/dL RDW (11.5-14.0) % Plt Count (150-450) x10^3/uL MPV (7.5-11.0) fL Gran % (36.0-66.0) % Immature Gran % (Auto) (0.00-0.4) % Nucleat RBC Rel Count (0.00-0.1) % Eos # (Auto) (0-0.5) x10^3/uL Immature Gran # (Auto) (0.00-0.03) x10^3u/L Absolute Lymphs (auto) (1.0-4.6) x10^3/uL Absolute Monos (auto) (0.0-1.3) x10^3/uL Absolute Nucleated RBC (0.00-0.01) x10^3u/L Lymphocytes % (24.0-44.0) % Monocytes % (0.0-12.0) % Eosinophils % (0.00-5.0) % Basophils % (0.0-0.4) % Absolute Granulocytes (1.4-6.9) x10^3/uL Basophils # (0-0.4) x10^3/uL Sodium (137-145) mmol/L Potassium (3.5-5.1) mmol/L Chloride (98-107) mmol/L Carbon Dioxide (22-30) mmol/L Anion Gap (5-15) MEQ/L BUN (9-20) mg/dL Creatinine (0.66-1.25) mg/dL Estimated GFR ML/MIN Glucose (74-106) mg/dL Calcium (8.4-10.2) mg/dL Slides for Path Review Crossmatch COMPATIBLE (COMPATIBLE) Discharge Exam General Appearance: no apparent distress, alert Neurologic Exam: oriented x 3, cooperative Eye Exam: eyes nml inspection Ears, Nose, Throat Exam: moist mucous membranes Neck Exam: normal inspection Respiratory Exam: normal breath sounds, lungs clear, No crackles/rales, No rhonchi, No wheezing Cardiovascular Exam: regular rate/rhythm, normal heart sounds, No murmur Gastrointestinal/Abdomen Exam: soft, normal bowel sounds, No tenderness, No distention, No mass, No guarding, No rebound Back Exam: normal inspection, No rash Extremity Exam: normal inspection, No pedal edema, No swelling Final Diagnosis/Problem List - Final Discharge Diagnosis/Problem (1) Symptomatic anemia Current Visit: Yes Status: Acute Assessment & Plan: home after transfusion, 3rd unit PRBC Code(s): D64.9 - ANEMIA, UNSPECIFIED (2) GRIMES (nonalcoholic steatohepatitis) Current Visit: Yes Status: Chronic Code(s): K75.81 - NONALCOHOLIC STEATOH EPATITIS (GRIMES) (3) CAD (coronary artery disease) Current Visit: Yes Status: Chronic Code(s): I25.10 - ATHSCL HEART DISEASE OF [place] CORONARY ARTERY W/O ANG PCTRS (4) Diabetes mellitus, type II Current Visit: Yes Status: Chronic (5) GERD (gastroesophageal reflux disease) Current Visit: Yes Status: Chronic Code(s): K21.9 - GASTRO-ESOPHAGEAL REFLUX DISEASE WITHOUT ESOPHAGITIS (6) HTN (hypertension) Current Visit: Yes Status: Chronic Code(s): I10 - ESSENTIAL (PRIMARY) HYPERTENSION - Discharge Disposition: Home, Self-Care Condition: Good Prescriptions: No Action Folic Acid 1 mg [Folate 1 mg] 2 mg PO DAILY Calcium Carbonate/Vitamin D3 [Calcium 600 mg-D3 20 Mcg Tab] 1 tab PO DAILY PANTOPRAZOLE 40 mg Tablet [Protonix 40MG Tablet] 40 mg PO BID Rifaximin [Xifaxan] 550 mg PO BID Spironolactone 25 mg [Aldactone 25 MG] 25 mg PO DAILY Aspirin EC 81 mg [Ecotrin 81 mg] 81 mg PO DAILY Atorvastatin Calcium [Lipitor] 10 mg PO HS Lactulose 45 ml PO QID Follow up with: GRACE BLOUNT NP [Primary Care Provider] -
[2022-06-03 18:31] LABS: Hematocrit 28.5 % (42-50); Hemoglobin 8.9 g/dL (12.5-18.0)
== END 2022-06-03 20:15 | disposition home or self-care (01) ==
LOC: ED 19:19 → MED SURG 06-02 00:06
PROVIDERS: ADMIT Family Medicine; ATTEND Family Medicine
DX: D64.9 Anemia, unspecified (principal); K75.81 Nonalcoholic steatohepatitis (NASH); I25.10 Atherosclerotic heart disease of native coronary artery without angina pectoris; E78.5 Hyperlipidemia, unspecified; E11.9 Type 2 diabetes mellitus without complications; I10 Essential (primary) hypertension; K21.9 Gastro-esophageal reflux disease without esophagitis; Z79.899 Other long term (current) drug therapy; Z20.828 Contact with and (suspected) exposure to other viral communicable diseases
CPT/HCPCS: 0241U; 36000; 36415; 36430; 80048; 80053; 81015; 83880; 85014; 85018; 85025; 85610; 86850; 86900; 86901; 86922; 93268; 99283; G0378; P9016; A9270-GY